=== PATIENT | female | born 1950 | race Caucasian/White ===

== ENCOUNTER 2020-05-14 15:35 | Outpatient (REF) | payer MEDICARE, SELFPAY ==
--- NOTE | 2020-05-14 15:45 | XR_ITS ---
EXAMINATION: XR LUMBOSACRAL SPINE CLINICAL INFORMATION: Radiculopathy. COMPARISON: None TECHNIQUE: Three views of the lumbosacral spine. FINDINGS: There is normal lumbar lordosis. The vertebral heights are normal. There is grade 1 anterolisthesis L4-L5. There is loss of L4-L5 and L-the disc heights with ventral spondylosis at T12-L1 and L1-L2 disc levels. No visible acute fracture, dislocation or lytic process seen. The paravertebral soft tissues are normal. The SI joints are symmetrical and normal. XR/XR lumbar spine 2-3V IMPRESSION: There is grade 1 anterolisthesis L4 over L5. There is degenerative disc changes L4-L5, L1-L2 and T12-L1 disc levels with mild ventral spondylosis. No visible acute fracture or dislocation seen.
== END 2020-05-14 15:36 | disposition home or self-care (01) ==
LOC: HO.HMGCX 15:35
PROVIDERS: PCP Internal Medicine; Visit Provider Nurse Practitioner Family
DX: M54.16 Radiculopathy, lumbar region (principal)
CPT/HCPCS: 72100

== ENCOUNTER 2020-08-21 09:04 | Outpatient (REF) | payer MEDICARE, SELFPAY ==
[2020-08-21 12:27] LABS: Alanine Aminotransferase 18 U/L (0-31); Anion Gap 13 (12-20); Aspartate Amino Transferase 17 U/L (5-31); Blood Urea Nitrogen 15 mg/dL (9-16); Calcium 9.3 mg/dL (8.4-10.2); Carbon Dioxide 29 mmol/L (22-29); Chloride 105 mmol/L (96-108); Cholesterol 144 mg/dL; Estimated Glomerular Filt Rate > 60; Glucose Fasting 102 mg/dL (60-99); HDL Cholesterol 54 mg/dL; LDL Cholesterol Calculated 67 mg/dl; Potassium 4.6 mmol/L (3.3-5.1); Sodium 142 mmol/L (135-145); Triglycerides 115 mg/dL
[2020-08-21 12:30] LABS: Vitamin D 25-OH Total 74.4 ng/mL (>30)
== END 2020-08-21 09:05 | disposition home or self-care (01) ==
LOC: HO.HMGCLDS 09:04
PROVIDERS: PCP Internal Medicine; Visit Provider Internal Medicine
DX: E78.5 Hyperlipidemia, unspecified (principal); M85.852 Other specified disorders of bone density and structure, left thigh; I10 Essential (primary) hypertension; Z78.0 Asymptomatic menopausal state
CPT/HCPCS: 36415; 80048; 80061; 82306; 84450; 84460

== ENCOUNTER 2020-12-15 13:12 | Outpatient (REF) | payer MEDICARE, SELFPAY | END 2020-12-15 13:13 | disposition home or self-care (01) | LOC: HO.LAB 13:12 | PROVIDERS: Visit Provider Nurse Practitioner Family | DX: Z20.822 Contact with and (suspected) exposure to COVID-19 (principal); J32.9 Chronic sinusitis, unspecified | CPT/HCPCS: U0003; U0005 ==

== ENCOUNTER 2021-05-27 08:14 | Outpatient (REF) | payer MEDICARE, SELFPAY ==
[2021-05-27 12:04] LABS: Alanine Aminotransferase 16 U/L (0-31); Anion Gap 10 (12-20); Aspartate Amino Transferase 17 U/L (5-31); Blood Urea Nitrogen 22 mg/dL (9-16); Calcium 9.2 mg/dL (8.4-10.2); Carbon Dioxide 26 mmol/L (22-29); Chloride 109 mmol/L (96-108); Cholesterol 186 mg/dL; Estimated Glomerular Filt Rate > 60; Glucose Fasting 86 mg/dL (60-99); HDL Cholesterol 53 mg/dL; LDL Cholesterol Calculated 91 mg/dl; Potassium 4.1 mmol/L (3.3-5.1); Sodium 141 mmol/L (135-145); Triglycerides 210 mg/dL
[2021-05-27 12:19] LABS: Vitamin D 25-OH Total 37.3 ng/mL (>30)
== END 2021-05-27 08:15 | disposition home or self-care (01) ==
LOC: HO.HMGCLDS 08:14
PROVIDERS: PCP Internal Medicine; Visit Provider Internal Medicine
DX: M85.852 Other specified disorders of bone density and structure, left thigh (principal); E78.5 Hyperlipidemia, unspecified; I10 Essential (primary) hypertension
CPT/HCPCS: 36415; 80048; 80061; 82306; 84450; 84460

== ENCOUNTER 2021-10-28 11:08 | Outpatient (REF) | payer MEDICARE, SELFPAY ==
--- NOTE | ~2021-10-28 | XR_ITS ---
EXAMINATION: XR HIP, LEFT CLINICAL INFORMATION: Left hip pain. COMPARISON: 06/18/2018 and 12/22/2011 hip radiographs. TECHNIQUE: Two views of the left hip. FINDINGS: Bones and soft tissues are normal. No fracture. Alignment is anatomic. Hip joint space is maintained. XR/XR hip LT min 2V IMPRESSION: Unremarkable left hip.
== END 2021-10-28 11:09 | disposition home or self-care (01) ==
LOC: HO.HMGCX 11:08
PROVIDERS: PCP Internal Medicine; Visit Provider Internal Medicine
DX: M25.552 Pain in left hip (principal)
CPT/HCPCS: 73502

== ENCOUNTER 2021-11-04 08:36 | Outpatient (REF) | payer MEDICARE, SELFPAY ==
[2021-11-04 11:04] LABS: MANUAL DIFF FLAG NO
[2021-11-04 11:17] LABS: Basophils Percent Auto 0.5 % (0-2); Eosinophils Absolute Auto 0.2 X10*3/uL (0.0-0.4); Eosinophils Percent Auto 3.8 % (0-4); Hematocrit 39.9 % (37.0-47.0); Hemoglobin 12.8 g/dl (12.0-16.0); Imm Gran Abs Auto 0.02 X10*3/uL (0.00-0.03); Imm Gran Pct Auto 0.4 % (0.0-0.4); Lymphocytes Absolute Auto 1.6 X10*3/uL (1.2-4.9); Lymphocytes Percent Auto 29.8 % (20-40); Mean Corpuscular HGB Conc 32.1 g/dl (31.0-35.0); Mean Corpuscular Hemoglobin 27.5 pg (27.0-33.0); Mean Corpuscular Volume 85.8 fL (80.0-98.0); Mean Platelet Volume 9.9 fL (9.4-12.3); Monocytes Absolute Auto 0.5 X10*3/uL (0.1-1.2); Monocytes Percent Auto 9.6 % (2-11); Neutrophils Absolute Auto 3.1 x10*3/uL (2.0-8.3); Neutrophils Percent Auto 55.9 % (45-73); Platelet Count 237 X10*3/uL (160-400); Red Blood Count 4.65 X10*6/uL (4.20-5.50); Red Cell Distribution Width 13.6 % (11.0-16.0); White Blood Count 5.5 X10*3/uL (4.8-10.8)
[2021-11-04 11:30] LABS: Alanine Aminotransferase 31 U/L (0-31); Anion Gap 12 (12-20); Aspartate Amino Transferase 28 U/L (5-31); Blood Urea Nitrogen 19 mg/dL (9-16); Calcium 8.8 mg/dL (8.4-10.2); Carbon Dioxide 26 mmol/L (22-29); Chloride 106 mmol/L (96-108); Cholesterol 165 mg/dL; Estimated Glomerular Filt Rate > 60; Glucose Fasting 93 mg/dL (60-99); HDL Cholesterol 44 mg/dL; LDL Cholesterol Calculated 88 mg/dl; Potassium 4.5 mmol/L (3.3-5.1); Sodium 139 mmol/L (135-145); Triglycerides 166 mg/dL
[2021-11-04 11:52] LABS: TSH reflex Free T4 2.25 uIU/mL (0.32-4.0); Vitamin D 25-OH Total 33.6 ng/mL (>30)
[2021-11-04 12:02] LABS: Folate > 20.0 ng/mL (> or = 4.0); Vitamin B12 398 pg/mL (200-900)
== END 2021-11-04 08:37 | disposition home or self-care (01) ==
LOC: HO.HMGCLDS 08:36
PROVIDERS: PCP Internal Medicine; Visit Provider Internal Medicine
DX: D12.6 Benign neoplasm of colon, unspecified (principal); E78.5 Hyperlipidemia, unspecified; I10 Essential (primary) hypertension; K22.70 Barrett's esophagus without dysplasia; L40.9 Psoriasis, unspecified; M85.852 Other specified disorders of bone density and structure, left thigh
CPT/HCPCS: 36415; 80048; 80061; 82306; 82607; 82746; 84443; 84450; 84460; 85025

== ENCOUNTER 2022-01-04 11:47 | Outpatient (REF) | payer MEDICARE, SELFPAY ==
[2022-01-04 12:43] LABS: Influenza A PCR NEGATIVE (Negative); Influenza B PCR NEGATIVE (Negative); Resp Syncy Virus RNA Qual PCR NEGATIVE (Negative); SARS COV2 PCR INHOUSE NEGATIVE (Negative)
== END 2022-01-04 11:48 | disposition home or self-care (01) ==
LOC: HO.LNP 11:47
PROVIDERS: Visit Provider Internal Medicine
DX: Z20.822 Contact with and (suspected) exposure to COVID-19 (principal); R43.9 Unspecified disturbances of smell and taste
CPT/HCPCS: 0241U

== ENCOUNTER 2022-04-22 07:27 | Outpatient (REF) | payer MEDICARE, SELFPAY ==
[2022-04-22 11:29] LABS: MANUAL DIFF FLAG NO
[2022-04-22 11:46] LABS: Basophils Absolute Auto 0.1 X10*3/uL (0.0-0.2); Basophils Percent Auto 0.9 % (0-2); Eosinophils Absolute Auto 0.2 X10*3/uL (0.0-0.4); Eosinophils Percent Auto 3.3 % (0-4); Hematocrit 40.7 % (37.0-47.0); Hemoglobin 12.5 g/dl (12.0-16.0); Imm Gran Abs Auto 0.03 X10*3/uL (0.00-0.03); Imm Gran Pct Auto 0.5 % (0.0-0.4); Lymphocytes Absolute Auto 1.8 X10*3/uL (1.2-4.9); Lymphocytes Percent Auto 30.1 % (20-40); Mean Corpuscular HGB Conc 30.7 g/dl (31.0-35.0); Mean Corpuscular Hemoglobin 27.1 pg (27.0-33.0); Mean Corpuscular Volume 88.1 fL (80.0-98.0); Mean Platelet Volume 9.6 fL (9.4-12.3); Monocytes Absolute Auto 0.6 X10*3/uL (0.1-1.2); Monocytes Percent Auto 9.6 % (2-11); Neutrophils Absolute Auto 3.2 x10*3/uL (2.0-8.3); Neutrophils Percent Auto 55.6 % (45-73); Platelet Count 288 X10*3/uL (160-400); Red Blood Count 4.62 X10*6/uL (4.20-5.50); White Blood Count 5.8 X10*3/uL (4.8-10.8)
[2022-04-22 13:30] LABS: Alanine Aminotransferase 16 U/L (0-31); Anion Gap 10 (12-20); Aspartate Amino Transferase 16 U/L (5-31); Blood Urea Nitrogen 17 mg/dL (9-16); Calcium 8.9 mg/dL (8.4-10.2); Carbon Dioxide 28 mmol/L (22-29); Chloride 110 mmol/L (96-108); Cholesterol 178 mg/dL; Estimated Glomerular Filt Rate > 60; Glucose Fasting 91 mg/dL (60-99); HDL Cholesterol 47 mg/dL; LDL Cholesterol Calculated 97 mg/dl; Potassium 4.2 mmol/L (3.3-5.1); Sodium 144 mmol/L (135-145); Triglycerides 173 mg/dL; Vitamin D 25-OH Total 33.4 ng/mL (>30)
== END 2022-04-22 07:28 | disposition home or self-care (01) ==
LOC: HO.HMGCLDS 07:27
PROVIDERS: PCP Internal Medicine; Visit Provider Internal Medicine
DX: D12.6 Benign neoplasm of colon, unspecified (principal); E78.5 Hyperlipidemia, unspecified; F32.4 Major depressive disorder, single episode, in partial remission; I10 Essential (primary) hypertension; K22.70 Barrett's esophagus without dysplasia; K29.50 Unspecified chronic gastritis without bleeding; L40.9 Psoriasis, unspecified; M85.852 Other specified disorders of bone density and structure, left thigh; N95.9 Unspecified menopausal and perimenopausal disorder; Z85.3 Personal history of malignant neoplasm of breast
CPT/HCPCS: 36415; 80048; 80061; 82306; 84450; 84460; 85025

== ENCOUNTER 2022-11-08 11:52 | Outpatient (REF) | payer MEDICARE, SELFPAY ==
[2022-11-08 14:26] LABS: Appearance Urine Turbid; Color Urine Yellow; Glucose Urine UA Negative (Negative); Leukocyte Esterase Urine Moderate (2+) (Negative); Nitrite Urine Negative (Negative); PH 5.5 (5.0-9.0); Specific Gravity - Urine 1.025 (1.005-1.025); UMIC TRIGGER UACC YES; Urine Blood Trace (Negative); Urine Ketones Negative (Negative); Urine Protein Negative (Neg-Trace)
[2022-11-08 14:32] LABS: Bacteria Urine 3+ (None Seen); Hyaline Casts Urine 0-2 /LPF (0-2); RBC Urine 0-2 /HPF (0-2); UACC Culture Trigger YES; WBC Urine >50 /HPF (0-5)
== END 2022-11-08 11:53 | disposition home or self-care (01) ==
LOC: HO.HMGCLDS 11:52
PROVIDERS: PCP Internal Medicine; Visit Provider Internal Medicine
DX: R35.0 Frequency of micturition (principal)
CPT/HCPCS: 81001; 87086

== ENCOUNTER 2022-11-29 21:44 | Emergency (ER) | payer MEDICARE, SELFPAY ==
--- NOTE | 2022-11-29 | ECG_ITS ---
Test Reason : FALL Blood Pressure : / mmHG Vent. Rate : 085 BPM Atrial Rate : 085 BPM P-R Int : 164 ms QRS Dur : 078 ms QT Int : 370 ms P-R-T Axes : 044 -03 030 degrees QTc Int : 440 ms Normal sinus rhythm Normal ECG No previous ECGs available Referred By: Generic ED Physician Electronically Signed By:Mike Gilbert
--- NOTE | ~2022-11-29 | XR_ITS ---
EXAMINATION: XR LUMBAR SPINE XR SACRUM/COCCYX CLINICAL INDICATION: Fall and pain COMPARISON: 05/14/2020 TECHNIQUE: 3 views of the lumbar spine. 3 views of the sacrum/coccyx. FINDINGS: Lumbar spine: There is anatomic alignment of the lumbar vertebral bodies and posterior elements. Vertebral body heights are maintained. Endplate osteophytes are noted in the upper lumbar spine. No acute fracture is seen. There is diffuse mild to moderate disc space narrowing and lower lumbar facet arthropathy. Sacrum/coccyx: No acute fracture is seen. Sacroiliac joints appear intact. XR/XR lumbar spine 2-3V IMPRESSION: No acute findings identified in the lumbar spine or sacrum/coccyx. Degenerative changes as noted above.
--- NOTE | ~2022-11-29 | XR_ITS ---
EXAMINATION: XR LUMBAR SPINE XR SACRUM/COCCYX CLINICAL INDICATION: Fall and pain COMPARISON: 05/14/2020 TECHNIQUE: 3 views of the lumbar spine. 3 views of the sacrum/coccyx. FINDINGS: Lumbar spine: There is anatomic alignment of the lumbar vertebral bodies and posterior elements. Vertebral body heights are maintained. Endplate osteophytes are noted in the upper lumbar spine. No acute fracture is seen. There is diffuse mild to moderate disc space narrowing and lower lumbar facet arthropathy. Sacrum/coccyx: No acute fracture is seen. Sacroiliac joints appear intact. XR/XR sacrum coccyx min 2V IMPRESSION: No acute findings identified in the lumbar spine or sacrum/coccyx. Degenerative changes as noted above.
--- NOTE | ~2022-11-29 | CT_ITS ---
EXAMINATION: CT HEAD WITHOUT CONTRAST CT CERVICAL SPINE WITHOUT CONTRAST CLINICAL INFORMATION: Fall. Trauma. COMPARISON: None. TECHNIQUE: Imaging was performed from the skull base to vertex without intravenous administration of contrast. In addition, helical noncontrast CT imaging was acquired through the cervical spine and source images were reviewed along with axial reconstructions and sagittal and coronal MPRs. [This CT examination was performed using dose optimization techniques as appropriate, variously including the following: *Automated exposure control *Adjustment of mA and/or kV according to patient size (this includes techniques or standardized protocols for targeted exams where dose is matched to indication/reason for exam; i.e. extremities or head) *Use of iterative reconstruction technique] DLP: 1039 mGy-cm FINDINGS: HEAD: Scalp hematoma left frontal region. No skull fracture. No intracranial mass, hemorrhage, or midline shift is visualized. The ventricles and sulci are proportional. No extra-axial collections are identified. Lobular mucosal thickening in the inferior maxillary sinuses bilateral. Mastoid air cells and middle ear cavities are normally aerated. CERVICAL SPINE: There is no evidence of acute cervical spine fracture. Vertebral bodies remain normal in height. Cervical vertebrae have normal alignment. There is multilevel degenerative spondylosis of the cervical spine with disc height narrowing and endplate spurs and facet joint arthrosis No pre- or paravertebral soft tissue abnormality is identified. Limited assessment of the lung apices is unremarkable. CT/CT head/brain wo IV con IMPRESSION: 1. No acute intracranial pathology. 2. No CT evidence of acute cervical spine fracture or traumatic subluxation
--- NOTE | ~2022-11-29 | CT_ITS ---
EXAMINATION: CT HEAD WITHOUT CONTRAST CT CERVICAL SPINE WITHOUT CONTRAST CLINICAL INFORMATION: Fall. Trauma. COMPARISON: None. TECHNIQUE: Imaging was performed from the skull base to vertex without intravenous administration of contrast. In addition, helical noncontrast CT imaging was acquired through the cervical spine and source images were reviewed along with axial reconstructions and sagittal and coronal MPRs. [This CT examination was performed using dose optimization techniques as appropriate, variously including the following: *Automated exposure control *Adjustment of mA and/or kV according to patient size (this includes techniques or standardized protocols for targeted exams where dose is matched to indication/reason for exam; i.e. extremities or head) *Use of iterative reconstruction technique] DLP: 1039 mGy-cm FINDINGS: HEAD: Scalp hematoma left frontal region. No skull fracture. No intracranial mass, hemorrhage, or midline shift is visualized. The ventricles and sulci are proportional. No extra-axial collections are identified. Lobular mucosal thickening in the inferior maxillary sinuses bilateral. Mastoid air cells and middle ear cavities are normally aerated. CERVICAL SPINE: There is no evidence of acute cervical spine fracture. Vertebral bodies remain normal in height. Cervical vertebrae have normal alignment. There is multilevel degenerative spondylosis of the cervical spine with disc height narrowing and endplate spurs and facet joint arthrosis No pre- or paravertebral soft tissue abnormality is identified. Limited assessment of the lung apices is unremarkable. CT/CT cervical spine wo IV con IMPRESSION: 1. No acute intracranial pathology. 2. No CT evidence of acute cervical spine fracture or traumatic subluxation
[2022-11-29 22:02] VITALS: BP 112/61; PULSE 90; RESP 20; TEMP 36.8; O2SAT 95; BMI 31.8
[2022-11-29 22:51] LABS: Basophils Absolute Auto 0.1 X10*3/uL (0.0-0.2); Basophils Percent Auto 0.3 % (0-2); Eosinophils Absolute Auto 0.2 X10*3/uL (0.0-0.4); Eosinophils Percent Auto 1.3 % (0-4); Hematocrit 40.7 % (37.0-47.0); Hemoglobin 12.8 g/dl (12.0-16.0); Imm Gran Abs Auto 0.06 X10*3/uL (0.00-0.03); Imm Gran Pct Auto 0.4 % (0.0-0.4); Lymphocytes Absolute Auto 1.9 X10*3/uL (1.2-4.9); Lymphocytes Percent Auto 12.4 % (20-40); MANUAL DIFF FLAG NO; Mean Corpuscular HGB Conc 31.4 g/dl (31.0-35.0); Mean Corpuscular Hemoglobin 27.5 pg (27.0-33.0); Mean Corpuscular Volume 87.3 fL (80.0-98.0); Mean Platelet Volume 8.9 fL (9.4-12.3); Monocytes Absolute Auto 1.2 X10*3/uL (0.1-1.2); Monocytes Percent Auto 7.8 % (2-11); Neutrophils Absolute Auto 11.9 x10*3/uL (2.0-8.3); Neutrophils Percent Auto 77.8 % (45-73); Platelet Count 273 X10*3/uL (160-400); Red Blood Count 4.66 X10*6/uL (4.20-5.50); Red Cell Distribution Width 13.8 % (11.0-16.0); White Blood Count 15.3 X10*3/uL (4.8-10.8)
--- NOTE | 2022-11-29 22:52 | ED.GENADULT ---
HPI - General Adult General Chief complaint: Fall Stated complaint: vertigo, fell down 10 stairs, per ems Time Seen by Provider: 11/29/22 22:16 Source: patient and EMS Mode of arrival: EMS Limitations: no limitations History of Present Illness HPI narrative: 72-year-old female with known chronic vertigo disorder with going upstairs patient felt dizzy and spinning of the room around her could not hold the door knob lost her balance and fell backward landing on her back hitting her head, patient decline headache, no weakness, no numbness, patient is only complaining of low back pain, Patient declined any CP, SOB, loss of consciousness, abdominal pain. Related Data Home Medications Medication Instructions Recorded Confirmed Lactobacillus rhamnosus GG 10 1 cap PO DAILY 05/26/20 11/12/22 billion cell capsule (Culturelle) mometasone 0.1 % topical cream appl topical BID PRN 05/26/20 11/12/22 multivit with 1 tab PO DAILY 05/26/20 11/12/22 frchfvim-xabr-LI-lutein 8 mg iron-400 mcg-300 mcg tablet (Centrum Silver Women) omega-3 fatty acids-fish oil 360 1 cap PO DAILY 05/26/20 11/12/22 mg-1,200 mg capsule (Fish Oil) tamoxifen 20 mg tablet 20 mg PO DAILY 05/26/20 11/12/22 trazodone 50 mg tablet 50 - 100 mg PO BEDTIME 05/26/20 11/12/22 biotin 10,000 mcg capsule mcg PO 05/31/21 11/12/22 cetirizine 10 mg tablet (Zyrtec) 10 mg PO DAILY PRN 05/31/21 11/12/22 citalopram 20 mg tablet 20 mg PO QAM 05/31/21 11/12/22 apremilast 30 mg tablet (Otezla) 30 mg PO BID 01/04/22 11/12/22 Previous Rx's Medication Instructions Recorded losartan 50 mg tablet 50 mg PO DAILY #90 tabs 01/26/22 tramadol 50 mg tablet 50 mg PO DAILY PRN pain #10 tabs 04/14/22 rosuvastatin 10 mg tablet (Crestor) 10 mg PO .every other day 90 days 09/01/22 #45 tabs nitrofurantoin 100 mg PO Q12H 10 days #20 caps 11/08/22 monohydrate/macrocrystals 100 mg capsule meclizine 25 mg tablet 25 mg PO DAILY PRN motion sickness 11/12/22 #14 tabs cefuroxime axetil 500 mg tablet 500 mg PO BID #14 tabs 11/29/22 Allergies Allergy/AdvReac Type Severity Reaction Status Date / Time levofloxacin [Levaquin] AdvReac Unknown GI upset Verified 11/29/22 22:02 Review of Systems Review of Systems: All other systems are reviewed and are negative Constitutional: Reports as per HPI and Reports no additional constitutional complaints Eyes: Reports as per HPI and Reports no additional eye complaints Reports system reviewed and no additional complaints, except as documented Cardiovascular: Reports as per HPI and Reports no additional cardiovascular complaints Respiratory: Reports as per HPI and Reports no additional respiratory complaints Gastrointestinal: Reports as per HPI and Reports no additional gastrointestinal complaints Genitourinary: Reports no additional female genitourinary complaints Musculoskeletal: Reports no additional musculoskeletal complaints Skin/Breast: Reports system reviewed and no additional complaints, except as docu Psychiatric: Reports no additional psychiatric complaints Endocrine: Reports no additional endocrine complaints Hematologic/Lymphatic: Reports no additional hematologic/lymphatic complaints Allergic/Immunologic: Reports no additional allergic/immunologic complaints Reports system reviewed and no additional complaints, except as documented and Reports Abnormal speech present [facility] Past Medical History Medical History Anxiety and depression 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 Chronic gastritis Chronic interstitial cystitis Chronic left hip pain Depression, major, in partial remission Dyslipidemia Environmental and seasonal allergies Essential hypertension Essential hypertension Hip bursitis, left Hx of breast cancer Osteopenia of left femoral neck Positional lightheadedness Preoperative examination Psoriasis Right lumbar radiculitis Tubular adenoma of colon Varicose veins of legs Surgical History Hx of colonoscopy S/P debridement Family History Family History Father Stroke Substance use disorder Mother HTN (hypertension) Asthma Breast cancer Brother Substance use disorder Social History Social History Housing: House Alcohol intake: never Patient Tobacco Use Status: Never used Tobacco e-Cigarette/Vaping Use: Never Used Second Hand Smoke Exposure: No Advance Directives: No Advance Directives Information Provided: Yes service: No Current occupational status: employed Cognitive needs: No Hearing needs: No Vision needs: No Physical Exam ED Vital Signs: Vital Signs - 24 hr 11/29/22 22:02 Temperature 98.2 F Pulse Rate 90 Respiratory Rate 20 Blood Pressure 112/61 Pulse Oximetry 95 Oxygen Delivery Method Room Air BMI result Body Mass Index 31.8 Vital signs have been reviewed as appeared to be correct. Blood pressure normal. Heart rate normal. Respiration rate normal. Temperature normal. Oxygen saturation normal. Appearance: Alert. Oriented X3. No acute distress. Head: Normal external exam. Normocephalic. Atraumatic. No Jarquin signs noted. No raccoon eyes noted, small hematoma to left forehead area. Eyes: PERRLA. EOMI. Conjunctiva and sclera normal. Eyelids normal. ENT: TM's Normal. Pharynx normal. Uvula midline. Moist mucous membranes. No trismus noted. No drooling noted. No muffled voice noted. Neck: Normal inspection. Neck supple. FROM. No adenopathy. Thyroid Normal. No meningeal signs. No neck mass noted. CVS: Normal heart rate and rhythm. Heart sound normal. No murmurs noted. Pulses normal throughout. Respiratory: No respiratory distress. Painless inspiration. Breath sounds normal. No wheezes/rales/rhonchi noted. Chest nontender. No accessory muscle usage noted or decreased air movement noted. Abdomen: Soft and nontender. Bowel sounds normal in all 4 quadrants. No distention noted. No organomegaly noted. No visible injury noted. Back: No CVA tenderness. Hematoma and tenderness to the lower lumbar/upper sacral area no step-off, no deformity. Skin: Skin warm and dry. Normal skin color. Normal skin turgor. No rashes/lesions/lacerations noted. Extremities: No lower extremity edema. Extremities exhibit normal range of motion. Extremities nontender. Neuro: Oriented X 3. Cranial nerve exam: II-XII are grossly intact No motor deficit. No sensory deficit. Reflexes normal. Course Course Course Narrative: 72-year-old female came in by ambulance after sustaining a mechanical fall patient has a chronic vertigo that triggered the patient's fall, patient is awake, alert, oriented x3, complaining of no chest pain, no LOC, no AC. Normal Neuro exam unremarkable head CT, EKG is unremarkable, troponin is negative 6 hours after the event, no SOB, leukocytosis likely reactionary Medical Decision Making Differential Diagnosis Differential Diagnoses: The differential diagnosis associated with the presentation includes (ACS, syncope, vertigo, mechanical fall, intracranial bleed, cervical spine injury, lumbar spine injury, UTI, electrolyte abnormality, severe anemia.) Admission/Observation Consideration of admission/observation: Escalation of care including admission/observation considered Lab Data MDM Lab Attestation statement: I reviewed the patient's lab results. 11/29/22 22:46 11/29/22 22:46 Labs: Lab Results 11/29/22 11/29/22 11/29/22 Range/Units 22:46 22:46 22:50 WBC 15.3 H (4.8-10.8) X10*3/uL RBC 4.66 (4.20-5.50) X10*6/uL Hgb 12.8 (12.0-16.0) g/dl Hct 40.7 (37.0-47.0) % MCV 87.3 (80.0-98.0) fL MCH 27.5 (27.0-33.0) pg MCHC 31.4 (31.0-35.0) g/dl RDW 13.8 (11.0-16.0) % Plt Count 273 (160-400) X10*3/uL MPV 8.9 L (9.4-12.3) fL Immature Gran % (Auto) 0.4 (0.0-0.4) % Neut % (Auto) 77.8 H (45-73) % Lymph % (Auto) 12.4 L (20-40) % [place] % (Auto) 7.8 (2-11) % Eos % (Auto) 1.3 (0-4) % Baso % (Auto) 0.3 (0-2) % Lymph # (Auto) 1.9 (1.2-4.9) X10*3/uL [place] # (Auto) 1.2 (0.1-1.2) X10*3/uL Eos # (Auto) 0.2 (0.0-0.4) X10*3/uL Baso # (Auto) 0.1 (0.0-0.2) X10*3/uL Abs Immat Gran (auto) 0.06 H (0.00-0.03) X10*3/uL Absolute Neuts (auto) 11.9 H (2.0-8.3) x10*3/uL Absolute Nucleated RBC 0.000 (0.0-0.012) X10*3/uL Nucleated RBC % (auto) 0.0 (0.0-0.2) /100WBC Sodium 141 (135-145) mmol/L Potassium 4.1 (3.3-5.1) mmol/L Chloride 106 (96-108) mmol/L Carbon Dioxide 24 (22-29) mmol/L Anion Gap 15 (12-20) BUN 26 H (9-16) mg/dL Creatinine 0.85 (0.5-1.4) mg/dL Estim Creat Clear Calc 60.9 Estimated GFR > 60 Random Glucose 146 H (60-115) mg/dL Calcium 9.6 D (8.4-10.2) mg/dL Urine Color Yellow Urine Appearance Turbid Urine pH 5.0 (5.0-9.0) Ur Specific Dexter >= 1.030 H (1.005-1.025) Urine Protein 30 (1+) H (Neg-Trace) mg/dL Urine Glucose (UA) Negative (Negative) mg/dL Urine Ketones Trace (Negative) mg/dL Urine Blood Small (1+) H (Negative) Urine Nitrite Negative (Negative) Ur Leukocyte Esterase Moderate (2+) H (Negative) Urine RBC 6-10 H (0-2) /HPF Urine WBC >50 H (0-5) /HPF Ur Squamous Epith Cells 11-20 (0-2) /HPF Calcium Oxalate Crystal Present Urine Bacteria 4+ (None Seen) Hyaline Casts 6-10 (0-2) /LPF Independent Interpretation I performed an independent interpretation of an: EKG (Normal sinus rhythm at 85 beats per minute, left axis deviation, normal intervals, no ST-T changes.), Plain X-Ray (Lumbar spine/sacral x-ray: No acute fracture.) and CT Scan (Head/C-spine CT: No acute intracranial pathology, no C-spine fracture.) Radiology Impression Discussion of test interpretation with radiology: I have reviewed the radiologist's reading. Chronic Conditions Patient?s care impacted by: Other (Vertigo) Discharge Plan Discharge Clinical Impression: Acute UTI (urinary tract infection), Vertigo, Contusion of back, Fall (on) (from) other stairs and steps, initial encounter Patient Disposition: Home, Self-Care Instructions: Urinary Tract Infection in Women (ED) Prescriptions: New cefuroxime axetil 500 mg tablet 500 mg PO BID Qty: 14 0RF No Action tramadol 50 mg tablet 50 mg PO DAILY PRN (Reason: pain) Qty: 10 0RF rosuvastatin [Crestor] 10 mg tablet 10 mg PO .every other day 90 Days Qty: 45 4RF Rx Instructions: 1 tablet every other day nitrofurantoin monohyd/m-cryst 100 mg capsule 100 mg PO Q12H 10 Days Qty: 20 0RF Rx Instructions: must administer with a meal/food tamoxifen 20 mg tablet 20 mg PO DAILY trazodone 50 mg tablet 50 - 100 mg PO BEDTIME omega-3 fatty acids-fish oil [Fish Oil] 360-1,200 mg capsule 1 cap PO DAILY Centrum Silver Women 8 mg iron-400 mcg-300 mcg tablet 1 tab PO DAILY Culturelle 10 billion cell capsule 1 cap PO DAILY mometasone 0.1 % cream topical BID PRN citalopram 20 mg tablet 20 mg PO QAM Otezla 30 mg tablet 30 mg PO BID biotin 10,000 mcg capsule PO cetirizine [Zyrtec] 10 mg tablet 10 mg PO DAILY PRN losartan 50 mg tablet 50 mg PO DAILY Qty: 90 3RF meclizine 25 mg tablet 25 mg PO DAILY PRN (Reason: motion sickness) Qty: 14 0RF Referrals: Margaret Roa MD [Primary Care Provider] -
[2022-11-29 23:00] LABS: Appearance Urine Turbid; Color Urine Yellow; Glucose Urine UA Negative (Negative); Leukocyte Esterase Urine Moderate (2+) (Negative); Nitrite Urine Negative (Negative); Specific Gravity - Urine >= 1.030 (1.005-1.025); UMIC TRIGGER UACC YES; Urine Blood Small (1+) (Negative); Urine Ketones Trace mg/dL (Negative); Urine Protein 30 (1+) mg/dL (Neg-Trace)
[2022-11-29 23:07] LABS: Anion Gap 15 (12-20); Blood Urea Nitrogen 26 mg/dL (9-16); Calcium 9.6 mg/dL (8.4-10.2); Carbon Dioxide 24 mmol/L (22-29); Chloride 106 mmol/L (96-108); Creatinine Clr Calc Pharmacy 60.9; Estimated Glomerular Filt Rate > 60; Glucose Random 146 mg/dL (60-115); Potassium 4.1 mmol/L (3.3-5.1); Sodium 141 mmol/L (135-145)
[2022-11-29 23:12] LABS: Bacteria Urine 4+ (None Seen); Calcium Oxalate Crystals Urine Present; UACC Culture Trigger YES; WBC Urine >50 /HPF (0-5)
--- NOTE | 2022-11-29 23:39 | PC.NURSE ---
handoff report to EHSAN Payton
[2022-11-30 00:01] LABS: Troponin-I High Sensitivity < 2.7 ng/L (<3.5-17.0)
[2022-11-30 00:19] VITALS: BP 128/64; PULSE 96; RESP 16; TEMP 36.9; O2SAT 92
== END 2022-11-30 00:51 | disposition home or self-care (01) ==
PROVIDERS: Emergency Provider Emergency Medicine; PCP Internal Medicine
DX: S30.0XXA Contusion of lower back and pelvis, initial encounter (principal); M54.50 Low back pain, unspecified; N39.0 Urinary tract infection, site not specified; R51.9 Headache, unspecified; M54.2 Cervicalgia; R42 Dizziness and giddiness; R07.89 Other chest pain; M53.3 Sacrococcygeal disorders, not elsewhere classified; W10.9XXA Fall (on) (from) unspecified stairs and steps, initial encounter; Y93.9 Activity, unspecified; Y92.9 Unspecified place or not applicable; Y99.9 Unspecified external cause status; Z79.899 Other long term (current) drug therapy
CPT/HCPCS: 36415; 70450; 72100; 72125; 72220; 80048; 81001; 81003; 84484; 85025; 87086; 93005; 99284; 99285

== ENCOUNTER → 2022-11-29 22:08 | Outpatient (BNV) | payer MEDICARE, SELFPAY | PROVIDERS: Emergency Provider Emergency Medicine; PCP Internal Medicine; Visit Provider Internal Medicine Cardiovascular Disease | DX: R42 Dizziness and giddiness (principal) | CPT/HCPCS: 93010 ==

== ENCOUNTER 2022-12-06 08:13 | Outpatient (REF) | payer MEDICARE, SELFPAY ==
[2022-12-06 12:41] LABS: Alanine Aminotransferase 30 U/L (0-31); Anion Gap 8 (12-20); Aspartate Amino Transferase 27 U/L (5-31); Blood Urea Nitrogen 17 mg/dL (9-16); Calcium 8.7 mg/dL (8.4-10.2); Carbon Dioxide 28 mmol/L (22-29); Chloride 109 mmol/L (96-108); Cholesterol 144 mg/dL; Estimated Glomerular Filt Rate > 60; Glucose Fasting 90 mg/dL (60-99); HDL Cholesterol 45 mg/dL; LDL Cholesterol Calculated 71 mg/dl; Potassium 4.4 mmol/L (3.3-5.1); Sodium 141 mmol/L (135-145); Triglycerides 141 mg/dL
== END 2022-12-06 08:14 | disposition home or self-care (01) ==
LOC: HO.HMGCLDS 08:13
PROVIDERS: PCP Internal Medicine; Visit Provider Internal Medicine
DX: F32.A Depression, unspecified (principal); F41.9 Anxiety disorder, unspecified; I10 Essential (primary) hypertension; E78.5 Hyperlipidemia, unspecified
CPT/HCPCS: 36415; 80048; 80061; 84450; 84460; 86617; 86618

== ENCOUNTER 2022-12-07 08:11 | Outpatient (REF) | payer MEDICARE, SELFPAY ==
[2022-12-07 13:07] LABS: Appearance Urine Cloudy; Color Urine Yellow; Glucose Urine UA Negative (Negative); Leukocyte Esterase Urine Moderate (2+) (Negative); Nitrite Urine Negative (Negative); PH 5.5 (5.0-9.0); UMIC TRIGGER UACC YES; Urine Blood Trace (Negative); Urine Ketones Negative (Negative); Urine Protein Negative (Neg-Trace)
[2022-12-07 13:11] LABS: Bacteria Urine 1+ (None Seen); Hyaline Casts Urine 0-2 /LPF (0-2); RBC Urine 0-2 /HPF (0-2); UACC Culture Trigger YES; WBC Urine 21-50 /HPF (0-5)
[2022-12-09 10:03] LABS: Lyme Abs Screen <0.90 index
== END 2022-12-07 08:12 | disposition home or self-care (01) ==
LOC: HO.HMGCLDS 08:11
PROVIDERS: Internal Medicine; PCP Internal Medicine; Visit Provider Internal Medicine
DX: T14.8XXA Other injury of unspecified body region, initial encounter (principal); W57.XXXA Bitten or stung by nonvenomous insect and other nonvenomous arthropods, initial encounter; R35.0 Frequency of micturition
CPT/HCPCS: 36415; 81001; 81003; 86617; 86618; 87086

== ENCOUNTER 2022-12-07 11:47 | Outpatient (AMB) | payer MEDICARE, SELFPAY ==
--- NOTE | 2022-12-07 11:54 | MHC.PC.OV ---
Vital Signs 12/07/22 12:15 Height 5 ft 4 in Weight 186 lb 4 oz BMI 32.0 BP 128/84 Blood Pressure Location Rt brachial Position Sitting Pulse 78 Pulse Source Pulse Oximeter Pulse Oximetry (%) 98 Oxygen Delivery Method Room Air Intake Visit Reasons: 6m ffup lipids, htn Intake Note: pt is here to follow up on labs and HTN pt has seen at [facility] for a fall on 11/29/22 Allergies levofloxacin [Levaquin] Adverse Reaction (Unknown, Verified 12/07/22 12:28) GI upset Medication List - Last Reconciled 12/07/22 by Margaret Roa MD biotin mcg PO cetirizine (Zyrtec) 10 mg PO DAILY PRN cholecalciferol (vitamin D3) 50 mcg PO DAILY escitalopram oxalate 20 mg PO DAILY gabapentin 100 mg PO DAILY lamotrigine 100 mg PO DAILY lorazepam 0.5 mg PO DAILY PRN losartan 50 mg PO DAILY meclizine 25 mg PO BID PRN mometasone 0.1% appl topical BID PRN omega-3 fatty acids-fish oil 360-1,200 mg (Fish Oil) 1 cap PO DAILY rosuvastatin (Crestor) 10 mg PO .every other day 90 days trazodone 50 - 100 mg PO BEDTIME Tobacco use date assessed: 12/07/22 Fall risk assessment: 2 + Falls in past year Last assessed Fall Risk: 12/07/22 Dental Screening Dental Screen Date: 12/07/22 Did you have a dental visit in the last 12 months?: Yes Did you have a dental problem in the last 6 months where you did not have access to dental care?: No Was dental information given to patient?: Patient has dentist HPI 6m ffup lipids, htn HPI Details 72-year-old lady here today for follow-up after recent ER visit. Was seen November 29 after a fall down 10 steps at home. Patient states that she was caring her grows really up to her house when she tilted her head backwards felt dizzy and fell backwards down the steps, she was able to get up and call for 911, no loss of consciousness. At the ER she had a CT of the head, C-spine, lumbar spine, sacrum and coccyx, which did not show any bleed, no mass, no midline shift, no fractures, and only showed presence of degenerative disc disease in her spine. Patient was evaluated at [facility] for possible benign positional vertigo on the same day, but results came back negative. She still experiences lightheadedness when she tilts her head back or when she attended side to side. Does have an appointment with vestibular rehab in [place] evaluate again for vertigo. Has been having frequent falls due to positional lightheadedness, has had4 episode already. Has tried taking meclizine, which she states has not been helping She is also here for follow-up on her dyslipidemia and hypertension. Recent fasting labs showed normal fasting lipid and fasting glucose as well as electrolytes and renal function. She had a a urinalysis done today, with results still pending, was diagnosed to have a UTI during her ER visit and was placed on antibiotic. Patient states that she still experiences urinary frequency, but no dysuria no back abdominal pain. She states that she has seen several urologists in the past and has been diagnosed to have interstitial cystitis. Has been placed on Detrol and Myrbetriq, which has not afforded any improvement, and cost difficulty with urination. 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 Chronic gastritis Chronic interstitial cystitis Chronic left hip pain Depression, major, in partial remission Dizziness after extension of neck Dyslipidemia Environmental and seasonal allergies Essential hypertension Essential hypertension Hip bursitis, left Hx of breast cancer Interstitial cystitis (chronic) with hematuria Osteopenia of left femoral neck Positional lightheadedness Preoperative examination Psoriasis Right lumbar radiculitis Tubular adenoma of colon Varicose veins of legs Surgical History Hx of colonoscopy S/P debridement Family History Father Stroke Substance use disorder Mother HTN (hypertension) Asthma Breast cancer Brother Substance use disorder Social History Housing: House Alcohol intake: never Patient Tobacco Use Status: Never used Tobacco e-Cigarette/Vaping Use: Never Used Second Hand Smoke Exposure: No service: No Current occupational status: employed Cognitive needs: No Hearing needs: No Vision needs: No Questionnaire Thrive Questionnaire Date Thrive assessed: 11/08/21 SCOTT-7 AMB Questionnaire SCOTT-7 Date SCOTT - 7 assessed: 11/08/21 Source: Developed by Drs. Keith Peralta, Ca Blandon, Marvin Byrnes and colleagues, with an educational yecenia from [employer]. Review of Systems Const Denies fever(s), Denies headache(s), Denies lethargy and Denies weakness Eyes Denies change in vision ENT Denies headache(s), Denies nasal congestion, Denies nasal discharge and Denies sore throat Card Denies chest pain, Denies lightheadedness and Denies dyspnea Resp Denies cough and Denies dyspnea GI Denies abdominal pain, Denies change in bowel habits and Denies heartburn Musc Details: Complaining of aching and stiffness in her lower back and hip left more than right Reports as per HPI Skin/Breast Details: Sustained swelling and a hematoma around left eye and cheek as well as lower back and buttock after her fall Neuro Details: Patient complains of feeling foggy head Denies headache(s) and Denies weakness Abdoulaye/Lymph Reports as per HPI Physical exam (Primary Care) Vital Signs: Last Vital Signs Pulse 78 12/07/22 12:15 BP 128/84 12/07/22 12:15 Pulse Ox 98 12/07/22 12:15 Oxygen Delivery Method Room Air 12/07/22 12:15 BMI result Body Mass Index 32.0 Tobacco/Smoking Status: Tobacco use Status Tobacco use date assessed 12/07/22 12/07/22 12:25 Patient Tobacco Use Status Never used Tobacco 12/07/22 11:55 e-Cigarette/Vaping Use Never Used 12/07/22 11:55 Thrive Assessment: Date of Thrive Assessment Date Thrive assessed 11/08/21 12/07/22 11:55 Const Other: Alert oriented x3, no acute cardiorespiratory distress noted ambulatory with assistance of a cane, gets lightheaded when she tilts her head backwards Nutritional Appearance: obese Orientation/consciousness: patient oriented x3 HENMT Head: Yes No palpable skull fracture present, Yes normocephalic, Yes hematoma (Left cheek and congregation), No scalp lesion, No scalp tenderness and Yes periorbital ecchymosis (Left) Eyes Periorbital: periorbital findings abnormal (Left periorbital ecchymosis) Conjunctivae: conjunctivae normal Pupils: Equal, round and reactive pupils present EOM: EOMs intact bilaterally Neck Neck: Yes full ROM (Gets dizzy when she tilts her head backwards), Yes no lymphadenopathy and Yes supple Resp Auscultation: clear to auscultation bilaterally Cardio Other: S1-S2 present regular rate and rhythm GI Palpation (GI): Soft to palpation, nontender, no guarding and no masses General: Yes no CVA tenderness Back/Spine/Pelvis Back: no CVA tenderness Skin Other: Left periorbital ecchymosis and bruising along left congregation and left cheek, healing hematoma on lower back and bilateral buttocks, left more than the right Neuro Other: Ambulatory with assistance of a cane General: patient oriented x3, moves all extremities, Normal light touch and pain sensation, no focal motor deficits and CN's II-XI intact bilaterally Cranial nerves: Yes Equal, round and reactive pupils present Extrem General: Yes full ROM, Yes no joint enlargement and Yes no clubbing, cyanosis or edema Results Reviewed Results Reviewed: ENTERED: 12/06/[address] [facility] [address]: ORDERED: Met Prof Fast, AST, ALT, Lipid Panel Test Result Flag Reference Site Sodium 141 135-145 mmol/L Potassium 4.4 3.3-5.1 mmol/L CL 109 H 96-108 mmol/L CO2 28 22-29 mmol/L Gap 8 L 12-20 BUN 17 H 9-16 mg/dL Creat 0.75 0.5-1.4 mg/dL EGFR > 60 NOTE: For -[place] individuals, multiply the result by 1.210. Chronic Kidney Disease: Estimated GFR < 60 mL/min/1.73m2 Severe Kidney Disease: Estimated GFR < 15 mL/min/1.73m2 FBS 90 60-99 mg/dL CA 8.7 # 8.4-10.2 mg/dL AST (GOT) 27 5-31 U/L ALT (GPT) 30 0-31 U/L Triglyceride 141 mg/dL Desirable Triglyceride: less than 150 mg/dL Borderline High Triglyceride 150-199 mg/dL High Triglyceride: 200-499 mg/dL Very High Triglyceride: greater than or equal to 5OO mg/dL Chol 144 mg/dL Desirable Cholesterol: less than 200 mg/dL Borderline High Cholesterol: 200-239 mg/dL High Cholesterol: greater than 239 mg/dL LDL Calculated 71 mg/dl Desirable LDL: less than 100 mg/dL Near Optimal/Above Optimal LDL: 110-129 mg/dL Borderline High LDL: 130-159 mg/dL High LDL: 160-189 mg/dL Very High LDL: greater than or equal to 190 mg/dL HDL 45 mg/dL Desirable HDL: greater than 40 mg/dL Note: This HDL assay may give artificially low results in patients with liver disease. PEC : [id number] YUSEF: 11/29/22 STATUS: COMP REQ : [id number] RECD: 11/29/[address]: Omar Gill MD COMP: 11/29/22 ENTERED: 11/29/[address]: Generic ED Physician ORDERED: CBC Auto Diff Test Result Flag Reference Site WBC 15.3 H 4.8-10.8 X10*3/uL RBC 4.66 4.20-5.50 X10*6/uL HGB 12.8 12.0-16.0 g/dl HCT 40.7 37.0-47.0 % MCV 87.3 80.0-98.0 fL MCH 27.5 27.0-33.0 pg MCHC 31.4 31.0-35.0 g/dl RDW 13.8 11.0-16.0 % PLT 273 160-400 X10*3/uL Assessment and Plan Assessment & Plan (1) Dizziness after extension of neck: Code(s): R42 - Dizziness and giddiness Plan: Advised to keep appointment with [facility] vestibular rehab for evaluation regarding positional vertigo, neurology appointment also obtain (2) Interstitial cystitis (chronic) with hematuria: Code(s): N30.11 - Interstitial cystitis (chronic) with hematuria Plan: Urology referral ordered (3) Urinary frequency: Code(s): R35.0 - Frequency of micturition Plan: Likely due to your interstitial cystitis, referred to urology for further evaluation management (4) Frequent falls: Code(s): R29.6 - Repeated falls Plan: Advised to keep appointment with [facility] physical therapy department for evaluation for positional vertigo and neurology referral ordered (5) Dyslipidemia: Code(s): E78.5 - Hyperlipidemia, unspecified Plan: Reviewed recent fasting lipid profile with patient with levels within normal . Continue with rosuvastatin and may decreased dosing frequency to twice a week; and advised to hold off on her [place] 3 fatty acid supplements. continue adherence to low-cholesterol diet and regular exercise, at least 30 minutes 3 to 4 times a week. Advised patient to make healthy food choices, eat more fruits, vegetables, whole grains, wild caught fish and low-fat dairy. Limit amount of meat and fried or fatty food products, as well as processed foods and fast foods. Follow-up scheduled with repeat fasting lipid panel in 3 months. (6) Essential hypertension: Code(s): I10 - Essential (primary) hypertension Plan: Blood pressure at goal of less than 130/80. Continue with losartan 50 mg daily . Reinforced importance of following a low sodium diet, getting regular exercise, and lowering stress levels. Orders: Orders Alanine Aminotransferase 3 Months E78.5 - Hyperlipidemia, unspecified, I10 - Essential (primary) hypertension Aspartate Amino Transferase 3 Months E78.5 - Hyperlipidemia, unspecified, I10 - Essential (primary) hypertension Basic Metabolic Panel Fasting 3 Months E78.5 - Hyperlipidemia, unspecified, I10 - Essential (primary) hypertension Lipid Panel 3 Months E78.5 - Hyperlipidemia, unspecified, I10 - Essential (primary) hypertension Referrals Urology Referral N30.11 - Interstitial cystitis (chronic) with hematuria, R35.0 - Frequency of micturition Neurology Referral R29.6 - Repeated falls, R42 - Dizziness and giddiness Coding Level of Care Code Est Pt Level 4 (55016) Diagnoses Dizziness after extension of neck R42 Interstitial cystitis (chronic) with hematuria N30.11 Urinary frequency R35.0 Frequent falls R29.6 Dyslipidemia E78.5 Essential hypertension I10
[2022-12-07 12:15] VITALS: BP 128/84; PULSE 78; O2SAT 98; BMI 32.0
== END 2022-12-07 13:30 | disposition home or self-care (01) ==
PROVIDERS: PCP Internal Medicine; Visit Provider Internal Medicine
DX: R42 Dizziness and giddiness (principal); N30.11 Interstitial cystitis (chronic) with hematuria; I10 Essential (primary) hypertension; R35.0 Frequency of micturition; R29.6 Repeated falls; E78.5 Hyperlipidemia, unspecified
CPT/HCPCS: 99214

== ENCOUNTER 2023-02-04 09:26 | Outpatient (AMB) | payer MEDICARE, SELFPAY ==
[2023-02-04 10:45] VITALS: BP 140/82; PULSE 88; TEMP 36.6; O2SAT 98; BMI 31.9
--- NOTE | 2023-02-04 10:45 | MHC.OFFWIV ---
Intake Vital Signs 02/04/23 10:45 Height 5 ft 4 in Weight 186 lb BMI 31.9 BP 140/82 H Blood Pressure Location Lt brachial Position Sitting Pulse 88 Pulse Source Pulse Oximeter Temp 97.8 F Temp Source Temporal Artery Scan Pulse Oximetry (%) 98 Oxygen Delivery Method Room Air Intake Visit Reasons: EST/uti Intake Note: pt is herer for c/o possible uti Patient Tobacco Use Status: Never used Tobacco Allergies levofloxacin [Levaquin] Adverse Reaction (Unknown, Verified 02/04/23 10:46) GI upset Do you need a note to return to daycare/school/sports/work: Yes HPI EST/uti HPI Details Patient is a 72-year-old female comes to clinic complaining of increased urinary frequency for the past few days. She gives a history stool cystitis with similar symptoms in the past never had a bacteria grown on culture. States she was treated for possibly UTI recently when she had a mechanical fall and went to the emergency department. She states she did not have any urinary symptoms at the time, but had shown some leuks in the urine. She denies painful urination, urinary incontinence, bladder pressure, back or flank pain, fever chills, nausea vomiting or diarrhea, weakness or malaise or myalgias, headache or dizziness, anorexia, blood in the urine, or other significant associated symptoms. 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 Chronic gastritis Varicose veins of legs Psoriasis Environmental and seasonal allergies Dyslipidemia Chronic interstitial cystitis Right lumbar radiculitis Surgical History Hx of colonoscopy S/P debridement Family History Father Stroke Substance use disorder Mother HTN (hypertension) Asthma Breast cancer Brother Substance use disorder Social History Housing: House Alcohol intake: never Patient Tobacco Use Status: Never used Tobacco e-Cigarette/Vaping Use: Never Used Second Hand Smoke Exposure: No service: No Current occupational status: employed Cognitive needs: No Hearing needs: No Vision needs: No Review of Systems Const All systems reviewed & are unremarkable except as noted in HPI and below Physical Exam Vital Signs: Last Vital Signs Temp 97.8 F 02/04/23 10:45 Pulse 88 02/04/23 10:45 BP 140/82 H 02/04/23 10:45 Pulse Ox 98 02/04/23 10:45 Oxygen Delivery Method Room Air 02/04/23 10:45 BMI result Body Mass Index 31.9 Const General: cooperative, healthy appearing, comfortable, no acute distress, alert, awake, Physically active and well groomed; No anxious, diaphoretic, ill appearing, intoxicated appearing, poor hygiene or tired appearing Nutritional Appearance: average body habitus Limitations: no limitations GI Palpation (GI): Soft to palpation, not firm, nontender, no guarding, not rigid, No hepatosplenomegaly present, no hernias and no masses General: Yes no CVA tenderness Back/Spine/Pelvis Back: no CVA tenderness Skin Other: Good color, warm and dry Psych Appearance: grossly normal Mental Status: mental status grossly normal Speech and movement: Normal speech and movement present Affect: normal affect Attitude: cooperative Thought process: Normal thought process present Insight: Good insight present (Psych) Judgement: Good judgement present (Psych) Results AMB Urinalysis, Automated UA Leukoctes 125 Mikey/uL Last Edit by Marko Bundy CMA on 02/04/23 10:59 UA Nitrite Negative Last Edit by Marko Bundy CMA on 02/04/23 10:59 UA Urobilinogen 0.2 mg/dL Last Edit by Marko Bundy CMA on 02/04/23 10:59 UA Protein 0 mg/dL Last Edit by Marko Bundy CMA on 02/04/23 10:59 UA pH 6.0 Last Edit by Marko Bundy CMA on 02/04/23 10:59 UA Blood 10 Issac/uL Last Edit by Marko Bundy CMA on 02/04/23 10:59 UA Specific [place] 1.015 Last Edit by Marko Bundy CMA on 02/04/23 10:59 UA Ketone Negative Last Edit by Marko Bundy CMA on 02/04/23 10:59 UA Bilirubin 0 mg/dL Last Edit by Marko Bundy CMA on 02/04/23 10:59 UA Glucose 0 mg/dL Last Edit by Marko Bundy CMA on 02/04/23 10:59 Results Reviewed Results Reviewed: Laboratory Last Values Urine pH (Auto) 6.0 02/04/23 10:57 Specific [place] (Auto) 1.015 02/04/23 10:57 Urine Protein (Auto) 0 mg/dL 02/04/23 10:57 Glucose (UA)(Auto) 0 mg/dL 02/04/23 10:57 Urine Ketones (Auto) Negative 02/04/23 10:57 Urine Blood (Auto) 10 Issac/uL 02/04/23 10:57 Urine Nitrite (Auto) Negative 02/04/23 10:57 Urine Bilirubin (Auto) 0 mg/dL 02/04/23 10:57 Urine Urobilinogen (Auto) 0.2 mg/dL 02/04/23 10:57 Leukocyte Esterase (Auto) 125 Mikey/uL 02/04/23 10:57 Assessment & Plan Assessment & Plan (1) Cystitis: Code(s): N30.90 - Cystitis, unspecified without hematuria Plan: I think patient likely has flare-up of her interstitial cystitis. Her only symptom is urinary frequency and she denies fever or chills, dysuria, abdominal pain, flank or upper back pain, nausea vomiting or diarrhea, weakness or acute dizziness, or other significant associated symptoms complicated or complicated UTI. Urine dip today is only positive for leuks and blood. She was written for cefuroxime in a recent ED visit for a fall associated with vertigo, and apparently follow-up testing of her urine was unremarkable. I did write her for another course of cefuroxime and she will follow-up with her urologist in 2 weeks as she has planned. They can do further testing at that point and consider prophylaxis for interstitial cystitis flare if that is the case. She knows she can follow in the meantime if his symptoms change or worsen. She knows to go to the emergency department for worrisome symptoms. Plan patient does have follow-up in 2 weeks scheduled with Urology, and she can do further testing at that point. Orders: Orders AMB Urinalysis Automated 02/04/23 Z13.9 - Encounter for screening, unspecified Medications: New cefuroxime axetil 500 mg PO BID 7 days 14 tabs 0RF Coding Level of Care Code Est Pt Level 4 (53340) Diagnoses Cystitis N30.90
== END 2023-02-04 12:07 | disposition home or self-care (01) ==
PROVIDERS: PCP Internal Medicine; Visit Provider Physician Assistant Medical
DX: R35.0 Frequency of micturition (principal)
CPT/HCPCS: 81003; 99214

== ENCOUNTER 2023-02-22 08:05 | Outpatient (AMB) | payer MEDICARE, SELFPAY ==
--- NOTE | 2023-02-22 09:02 | MHC.OFFWIV ---
Intake Vital Signs 02/22/23 09:03 Height 5 ft 4 in Weight 181 lb BMI 31.1 BP 130/82 Blood Pressure Location Lt brachial Position Sitting Pulse 98 Pulse Source Pulse Oximeter Pulse Oximetry (%) 96 Oxygen Delivery Method Room Air Intake Visit Reasons: EP, rash all over body Intake Note: Patient here for possible allergic reaction to the sun. She has hives that are very itchy that she noticed last week. Patient Tobacco Use Status: Never used Tobacco Allergies levofloxacin [Levaquin] Adverse Reaction (Unknown, Verified 02/22/23 09:27) GI upset Medication List - Last Reconciled 02/22/23 by Hanane Jimenes, WHIPPED TOPPING SUPERVISOR- apremilast (Otezla) 30 mg PO BID biotin mcg PO cefuroxime axetil 500 mg PO BID 7 days cetirizine (Zyrtec) 10 mg PO DAILY PRN cholecalciferol (vitamin D3) 50 mcg PO DAILY escitalopram oxalate 20 mg PO DAILY gabapentin 100 mg PO DAILY lamotrigine 100 mg PO DAILY lorazepam 0.5 mg PO DAILY PRN losartan 50 mg PO DAILY meclizine 25 mg PO BID PRN mometasone 0.1% appl topical BID PRN omega-3 fatty acids-fish oil 360-1,200 mg (Fish Oil) 1 cap PO DAILY rosuvastatin (Crestor) 10 mg PO .every other day 90 days trazodone 50 - 100 mg PO BEDTIME Do you need a note to return to daycare/school/sports/work: No HPI HPI Comments History of Present Illness Details PRESENTS TODAY WITH COMPLAINTS OF ITCHY RASH AFFECTING ARMS AND BACK. STATES THIS STARTED ABOUT 10 DAYS AGO [place] HAS A KNOWN SUN SENSITIVITY [place] SP OF PROTECTION. THE RASH DEVELOPED WITHIN HOURS. SHE HAS BEEN USING BENADRYL WITHOUT RELIEF. DENIES FEVER CHILLS OTHER ALLERGIC EXPOSURES. REPORTS NO ONE ELSE HAS A RASH LIKE THIS. THIS HAS HAPPENED TO HER PREVIOUSLY. 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 Chronic gastritis Varicose veins of legs Psoriasis Environmental and seasonal allergies Dyslipidemia Chronic interstitial cystitis Right lumbar radiculitis Surgical History Hx of colonoscopy S/P debridement Family History Father Stroke Substance use disorder Mother HTN (hypertension) Asthma Breast cancer Brother Substance use disorder Social History Housing: House Alcohol intake: never Patient Tobacco Use Status: Never used Tobacco e-Cigarette/Vaping Use: Never Used Second Hand Smoke Exposure: No service: No Current occupational status: employed Cognitive needs: No Hearing needs: No Vision needs: No Review of Systems Const All systems reviewed & are unremarkable except as noted in HPI and below Physical Exam Vital Signs: Last Vital Signs Pulse 98 02/22/23 09:03 BP 130/82 02/22/23 09:03 Pulse Ox 96 02/22/23 09:03 Oxygen Delivery Method Room Air 02/22/23 09:03 BMI result Body Mass Index 31.1 Const Other: AWAKE ALERT, MILDLY ANXIOUS SPEAKING IN FULL SENTENCES DIFFUSE PAPULAR RASH NOTED TO BILAT ARMS AND ACROSS SHOULDER BLADES W/ SOME SUPERFICIAL EXCORIATIONS W/O SIGNS OF INFECTION. 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 TAKE STEROID TAPER DIRECTED. IN ADDITION USE PEPCID FOR 30 DAYS. SHE HAS A TOPICAL STEROID CREAM AT HOME THAT SHE USES FOR PSORIASIS I HAVE ADVISED HER TO USE THIS ON THE RASH WELL. SHE WAS ADVISED TO COME BACK FOR SIGNS AND SYMPTOMS OF INFECTION THAT COULD CERTAINLY OCCUR IF SHE IS SCRATCHING THE SKIN. SHE SHOULD ALSO COME BACK IF THE RASH WERE TO RECUR AFTER THE STEROID TAPER. Code(s): L56.8 - Other specified acute skin changes due to ultraviolet radiation Medications: New famotidine (Pepcid AC) 20 mg PO BEDTIME 30 tabs 0RF prednisone 5 tabs x 2 days, 4 tabs x 2 days, 3 tabs x 2 days, 2 tabs x 2 days, 1 tab x 2 days and then STOP. 10 mg PO DIRECTED 30 tabs 0RF 10 days Coding Level of Care Code Est Pt Level 3 (99116) Diagnoses Photosensitivity dermatitis due to sun L56.8
[2023-02-22 09:03] VITALS: BP 130/82; PULSE 98; O2SAT 96; BMI 31.1
== END 2023-02-22 09:55 | disposition home or self-care (01) ==
PROVIDERS: PCP Internal Medicine; Visit Provider Nurse Practitioner Family
DX: L56.8 Other specified acute skin changes due to ultraviolet radiation (principal)
CPT/HCPCS: 99213

== ENCOUNTER 2023-02-22 11:14 | Outpatient (AMB) | payer MEDICARE, SELFPAY ==
--- NOTE | 2023-02-22 11:17 | A.OFFVIS_ITS ---
Intake Intake Visit Reasons: IC w Hematuria/Frequency of Urine Intake Note: New Patient presents for initial visit for interstitial cystitis /frequency Urology Medications: none Blood Thinner: none PVR:0ml's Subsorter Required: No Accompanied by: Self / Same As Patient Allergies levofloxacin [Levaquin] Adverse Reaction (Unknown, Verified 02/22/23 12:10) GI upset Medication List - Last Reconciled 02/22/23 by OLAMIDE ZepedaP- apremilast (Otezla) 30 mg PO BID biotin mcg PO cefuroxime axetil 500 mg PO BID 7 days cetirizine (Zyrtec) 10 mg PO DAILY PRN cholecalciferol (vitamin D3) 50 mcg PO DAILY escitalopram oxalate 20 mg PO DAILY famotidine (Pepcid AC) 20 mg PO BEDTIME gabapentin 100 mg PO DAILY lamotrigine 100 mg PO DAILY lorazepam 0.5 mg PO DAILY PRN losartan 50 mg PO DAILY meclizine 25 mg PO BID PRN mometasone 0.1% appl topical BID PRN omega-3 fatty acids-fish oil 360-1,200 mg (Fish Oil) 1 cap PO DAILY prednisone 10 mg PO DIRECTED 10 days rosuvastatin (Crestor) 10 mg PO .every other day 90 days trazodone 50 - 100 mg PO BEDTIME HPI HPI Comments 2 History of Present Illness Details Miriam is a very pleasant 73-year-old female patient of Dr. Roa. She has a past medical history of anxiety, depression, hypertension, Agosto's esophagus, chronic gastritis, varicose veins, psoriasis, dyslipidemia, and lumbar radiculitis. She presents to the office today as a new patient for microscopic hematuria and lower urinary tract symptoms. She reports since the age of [age] years old being diagnosed with interstitial cystitis. She discusses have seeked support groups in [place] for her longstanding interstitial cystitis. Discussion with the patient today she reports new onset recurrent urinary tract infections over the last 6 months. She reports not noting the difference between urinary tract infection and symptoms of interstitial cystitis. She reports experiencing urinary frequency, urinary urgency, bladder pressure, and nocturia. She denies incontinence, hematuria, flank pain, fever, and or chills. She reports previously following up with [facility] for many years and has tried multiple oral therapies for interstitial cystitis including oxybutynin, Myrbetriq, VESIcare, Elmiron, amitriptyline, gabapentin, and Detrol. She reports no significant improvement in lower urinary tract symptoms on any of these medications. She does report having had somewhat improvement in urinary symptoms when on amitriptyline however this made her very fatigued. She reports following interstitial cystitis diet with no improvement in lower urinary tract symptoms. She endorses to be drinking plenty of water daily. Discussed trial of low-dose antibiotic therapy verses low-dose Cialis verses rescue solutions. In office urinalysis results reviewed with the patient today. Will send urine for microgen testing for further assessment evaluation. Discussed pelvic floor therapy. [facility] Medical History Dizziness after extension of neck Interstitial cystitis (chronic) with hematuria Anxiety and depression Chronic left hip pain Essential hypertension Hip bursitis, left Positional lightheadedness Depression, major, in partial remission Hx of breast cancer Preoperative examination Essential hypertension Osteopenia of left femoral neck Tubular adenoma of colon 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 Chronic gastritis Varicose veins of legs Psoriasis Environmental and seasonal allergies Dyslipidemia Chronic interstitial cystitis Right lumbar radiculitis Surgical History Hx of colonoscopy S/P debridement Family History Father Stroke Substance use disorder Mother HTN (hypertension) Asthma Breast cancer Brother Substance use disorder Social History Housing: House Alcohol intake: never Patient Tobacco Use Status: Never used Tobacco e-Cigarette/Vaping Use: Never Used Second Hand Smoke Exposure: No service: No Current occupational status: employed Cognitive needs: No Hearing needs: No Vision needs: No Review of Systems Const Reports as per HPI Eyes Reports no additional complaints ENT Reports no additional complaints Card Reports as per HPI Resp Reports no additional complaints GI Reports as per HPI Reports as per HPI Musc Reports as per HPI Neuro Reports no additional complaints Psych Reports as per HPI Endo Reports no additional complaints Abdoulaye/Lymph Reports no additional complaints Aller/Immun Reports no additional complaints Physical Exam Const General: cooperative, healthy appearing, comfortable, no acute distress, well developed, alert and awake Orientation/consciousness: patient oriented x3 Limitations: no limitations HEENT Head: Yes normal to inspection, Yes normocephalic and Yes atraumatic Ears: hearing grossly normal bilaterally Eyes General: appearance normal, both eyes and all related structures Neck Neck: Yes normal visual inspection and Yes trachea midline Chest Chest palpation & inspection: normal inspection of the chest Resp Effort & Inspection: normal respiratory effort and able to speak in complete sentences Cardio Rate: regular rate GI Inspection: Yes normal to inspection General: Yes no CVA tenderness Back/Spine/Pelvis Back: no CVA tenderness Skin General skin exam: no rashes or lesions noted Neuro General: patient oriented x3 Extrem General: Yes normal to inspection Psych Appearance: grossly normal and well kempt Mental Status: mental status grossly normal Speech and movement: Normal speech and movement present and Clear speech present Affect: normal affect Attitude: cooperative Thought process: Normal thought process present Thought content: Normal thought content present Insight: Fair insight present (Psych) Judgement: Fair judgement present (Psych) Office Procedures Post Void Residual Post Residual Void Post Void Residual (PVR): 0 [id number]-[id number] Void Residual by ultrasound Results AMB Urinalysis, Automated UA Leukoctes 125 Mikey/uL Last Edit by CryptoSeal on 02/22/23 11:43 UA Nitrite Negative Last Edit by CryptoSeal on 02/22/23 11:43 UA Urobilinogen 0.2 mg/dL Last Edit by CryptoSeal on 02/22/23 11:43 UA Protein 15 mg/dL Last Edit by CryptoSeal on 02/22/23 11:43 UA pH 7.0 Last Edit by CryptoSeal on 02/22/23 11:43 UA Blood 10 Issac/uL Last Edit by CryptoSeal on 02/22/23 11:43 UA Specific [place] 1.015 Last Edit by CryptoSeal on 02/22/23 11:43 UA Ketone Negative Last Edit by CryptoSeal on 02/22/23 11:43 UA Bilirubin 0 mg/dL Last Edit by CryptoSeal on 02/22/23 11:43 UA Glucose 0 mg/dL Last Edit by CryptoSeal on 02/22/23 11:43 Results Reviewed Results Reviewed: Laboratory Last Values Urine pH (Auto) 7.0 02/22/23 11:27 Specific [place] (Auto) 1.015 02/22/23 11:27 Urine Protein (Auto) 15 mg/dL 02/22/23 11:27 Glucose (UA)(Auto) 0 mg/dL 02/22/23 11:27 Urine Ketones (Auto) Negative 02/22/23 11:27 Urine Blood (Auto) 10 Issac/uL 02/22/23 11:27 Urine Nitrite (Auto) Negative 02/22/23 11:27 Urine Bilirubin (Auto) 0 mg/dL 02/22/23 11:27 Urine Urobilinogen (Auto) 0.2 mg/dL 02/22/23 11:27 Leukocyte Esterase (Auto) 125 Mikey/uL 02/22/23 11:27 Assessment & Plan Assessment & Plan (1) Microscopic hematuria: Code(s): R31.29 - Other microscopic hematuria (2) Sensation of pressure in bladder area: Code(s): R39.89 - Other symptoms and signs involving the genitourinary system (3) Urinary frequency: Code(s): R35.0 - Frequency of micturition (4) Urinary urgency: Code(s): R39.15 - Urgency of urination (5) Lower urinary tract symptoms: Code(s): R39.9 - Unspecified symptoms and signs involving the genitourinary system Plan In office urinalysis results reviewed with the patient today; will send for microgen testing Will obtain retroperitoneal ultrasound for further assessment evaluation. Discussed further treatment options for interstitial cystitis at length Information provided on pelvic floor therapy/exercises Discussed bladder triggers/irritants Discussed and stressed the importance of drinking plenty of water daily Discussed near future in office cystoscopy if symptoms persist and/or worsen Follow-up in 6 weeks with imaging to be completed prior; or sooner with any issues, concerns, or questions. Orders: Orders AMB Urinalysis Automated Today Z13.9 - Encounter for screening, unspecified US retroperitoneal comp Today R31.29 - Other microscopic hematuria, R35.0 - Frequency of micturition, R39.15 - Urgency of urination, R39.89 - Other symptoms and signs involving the genitourinary system, R39.9 - Unspecified symptoms and signs involving the genitourinary system AMB Post Void Residual by ultrasound Today N30.11 - Interstitial cystitis (chronic) with hematuria Patient Instructions: The patient had an opportunity to ask questions regarding the treatment plan. All questions were answered. Physical exam, labs, and imaging were discussed and reviewed in detail. As well as risks, benefits, and discussion of treatment choices. No major barriers to understanding were identified. The patient expressed understanding and agreement with the above treatment plan. The patient was made aware they should contact our office by phone for worsening of their current condition, the appearance of new symptoms, or with any questions or concerns. Compliance is encouraged with any medications and follow up testing that is ordered. It is a privilege to be allowed the opportunity to participate in? your urological care.? Again, if you have any questions or concerns If you have any questions or concerns please do not hesitate to contact me. The office is [phone]. This note is constructed using voice recognition software. While every effort has been made to ensure accuracy fur blender errors may have been included. Yours sincerely, BRUCE Zepeda Coding Level of Care Code New Pt Level 3 (47825) Diagnoses Microscopic hematuria R31.29 Sensation of pressure in bladder area R39.89 Urinary frequency R35.0 Urinary urgency R39.15 Lower urinary tract symptoms R39.9 CPT Codes Post Residual Void - PVR CPT Code: 85986-Yccq Void Residual by ultrasound ([id number])
== END 2023-02-22 12:05 | disposition home or self-care (01) ==
PROVIDERS: PCP Internal Medicine; Referring Provider Internal Medicine; Visit Provider Nurse Practitioner Family
DX: R31.29 Other microscopic hematuria (principal); R39.89 Other symptoms and signs involving the genitourinary system; R35.0 Frequency of micturition; R39.15 Urgency of urination; R39.9 Unspecified symptoms and signs involving the genitourinary system; Z13.9 Encounter for screening, unspecified
CPT/HCPCS: 99203

== ENCOUNTER → 2023-02-22 11:14 | Outpatient (BNVA) | payer MEDICARE, SELFPAY | PROVIDERS: PCP Internal Medicine; Referring Provider Internal Medicine; Visit Provider Nurse Practitioner Family | DX: R31.29 Other microscopic hematuria (principal); R39.89 Other symptoms and signs involving the genitourinary system; R35.0 Frequency of micturition; R39.15 Urgency of urination; R39.9 Unspecified symptoms and signs involving the genitourinary system | CPT/HCPCS: 51798; 81003 ==

== ENCOUNTER 2023-11-07 07:46 | Outpatient (REF) | payer MEDICARE, SELFPAY ==
[2023-11-07 12:22] LABS: Alanine Aminotransferase 14 U/L (0-31); Anion Gap 13 (12-20); Aspartate Amino Transferase 15 U/L (5-31); Blood Urea Nitrogen 20 mg/dL (9-16); Calcium 9.5 mg/dL (8.4-10.2); Carbon Dioxide 26 mmol/L (22-29); Chloride 108 mmol/L (96-108); Cholesterol 205 mg/dL (<200); Estimated Glomerular Filt Rate > 60; Glucose Fasting 92 mg/dL (60-99); HDL Cholesterol 58 mg/dL (>40); LDL Cholesterol Calculated 121 mg/dL (<100); Sodium 143 mmol/L (135-145); Triglycerides 133 mg/dL (<150)
== END 2023-11-07 07:47 | disposition home or self-care (01) ==
LOC: HO.HMGCLDS 07:46
PROVIDERS: PCP Internal Medicine; Visit Provider Internal Medicine
DX: I10 Essential (primary) hypertension (principal); E78.5 Hyperlipidemia, unspecified
CPT/HCPCS: 36415; 80048; 80061; 84450; 84460

== ENCOUNTER 2024-03-12 12:48 | Outpatient (AMB) | payer MEDICARE, SELFPAY ==
[2024-03-12 12:53] VITALS: BP 120/84; PULSE 76; O2SAT 97; BMI 31.8
--- NOTE | 2024-03-12 12:53 | MHC.PC.OV ---
Vital Signs 03/12/24 12:53 Height 5 ft 4 in Weight 185 lb BMI 31.8 BP 120/84 Blood Pressure Location Lt brachial Position Sitting Pulse 76 Pulse Source Pulse Oximeter Pulse Oximetry (%) 97 Oxygen Delivery Method Room Air Intake Visit Reasons: 6M Follow UP Intake Note: Pt is here today for 6 months follow up visit. Allergies levofloxacin [Levaquin] Adverse Reaction (Unknown, Verified 03/12/24 13:11) GI upset Medication List - Last Reconciled 03/12/24 by Margaret Roa MD biotin mcg PO cetirizine (Zyrtec) 10 mg PO DAILY PRN cholecalciferol (vitamin D3) 50 mcg PO DAILY deucravacitinib (Sotyktu) 6 mg PO DAILY escitalopram oxalate 20 mg PO DAILY famotidine (Pepcid AC) 20 mg PO BEDTIME PRN gabapentin 200 mg PO DAILY lamotrigine 100 mg PO DAILY losartan 50 mg PO DAILY mometasone 0.1% appl topical BID PRN omega-3 fatty acids-fish oil 360-1,200 mg (Fish Oil) 1 cap PO DAILY rosuvastatin (Crestor) 10 mg PO .every other day 90 days trazodone 50 - 100 mg PO BEDTIME Tobacco use date assessed: 03/12/24 Fall risk assessment: 1 Fall in past year Last assessed Fall Risk: 03/12/24 Dental Screening Dental Screen Date: 03/12/24 Did you have a dental visit in the last 12 months?: Yes Did you have a dental problem in the last 6 months where you did not have access to dental care?: No Was dental information given to patient?: Patient has dentist HPI 6M Follow UP HPI Details 74-year-old lady with hypertension and dyslipidemia, here today for her follow-up. She has been compliant with taking her medications, blood pressure has been stable and controlled with present treatment. Currently taking rosuvastatin 10 mg taken 1 tablet every other day for her dyslipidemia, due for recheck on her lipids. She is also here complaining of urinary frequency and pressure on her lower abdominal area. Patient has been diagnosed with interstitial cystitis in the past and has tried multiple treatments all of which has not afforded any relief. Denies any accompanying back pain, has been afebrile, no chills or nausea reported. [facility] Medical History (Updated 03/12/24 @ 13:29 by Margaret Roa MD) Dizziness after extension of neck Interstitial cystitis (chronic) with hematuria Anxiety and depression Chronic left hip pain Essential hypertension Hip bursitis, left Positional lightheadedness Depression, major, in partial remission Hx of breast cancer Preoperative examination Essential hypertension Osteopenia of left femoral neck Tubular adenoma of colon 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 Chronic gastritis Varicose veins of legs Psoriasis Environmental and seasonal allergies Dyslipidemia Chronic interstitial cystitis Right lumbar radiculitis Surgical History Hx of colonoscopy S/P debridement Family History Father Stroke Substance use disorder Mother HTN (hypertension) Asthma Breast cancer Brother Substance use disorder Social History Housing: House Alcohol intake: never Patient Tobacco Use Status: Never used Tobacco e-Cigarette/Vaping Use: Never Used Second Hand Smoke Exposure: No service: No Current occupational status: employed Cognitive needs: No Hearing needs: No Vision needs: No Questionnaire PHQ-9 Over the last 2 weeks, how often have you been bothered by any of the following problems? 1. Little interest or pleasure in doing things: several days 2. Feeling down, depressed, or hopeless: not at all 3. Trouble falling or staying asleep, or sleeping too much: several days 4. Feeling tired or having little energy: several days 5. Poor appetite or overeating: several days 6. Feeling bad about yourself - or that you are a failure or have let yourself or your family down: not at all 7. Trouble concentrating on things, such as reading the newspaper or watching television: not at all 8. Moving or speaking so slowly that other people could have noticed. Or the opposite - being so fidgety or restless that you have been moving around a lot more than usual: not at all 9. Thoughts that you would be better off or of hurting yourself in some way: not at all Total score: 4 Depression Screening Interpretation: Negative Depression Screening Done: Yes 24081 - PHQ-9 Billing: Yes Source: Developed by Drs. Keith Peralta, Ca Blandon, Marvin Byrnes and colleagues, with an educational yecenia from [employer]. Thrive Questionnaire Date Thrive assessed: 03/12/24 I am a: Patient What is your living situation today?: I have a steady place to live Within the past 12 months, did the food you bought not last and you didn't have the money to get more?: Never true Within the past 12 months, did you worry whether your food would run out before you got money to buy more?: Never true Do you have trouble paying for medicines?: No Do you have trouble getting transportation to medical appointments?: No Do you have trouble paying your heating and electricity bill?: No Do you have trouble taking care of your child, family member or friend?: No Do you have trouble with day-to-day activities such as bathing, preparing meals, shopping, managing finances, etc.?: No Are you currently unemployed and looking for a job?: No Are you interested in more education?: No Please select the resources that you would like help with: None Currently or been in a relationship where the following occur: I choose not to answer THRIVE Score: 0 AUDIT C Alcohol Use Questionnaire (AUDIT-C) 1. How often do you have a drink containing alcohol?: Monthly or less 2. How many drinks containing alcohol do you have on a typical day when you are drinking?: 1 or 2 3. How often do you have six or more drinks on one occasion?: Never Total Score: 1 SCOTT-7 AMB Questionnaire SCOTT-7 Date SCOTT - 7 assessed: 03/12/24 Feeling nervous, anxious, or on edge: 0 = Not at all Not being able to stop or control worryin = Not at all Worrying too much about different things: 0 = Not at all Trouble relaxin = Not at all Being so restless that it is hard to sit still: 0 = Not at all Becoming easily annoyed or irritable: 0 = Not at all Feeling afraid as if something awful might happen: 0 = Not at all Total SCOTT-7 score (0-4 normal; 5-9 mild; 10-14 moderate; 15-21 severe): 0 Source: Developed by Ca StokesMarvin and colleagues, with an educational yecenia from [employer]. SCOTT-7 Assessment Billing SCOTT-7 Assessment Tool: SCOTT-7 Assessment 51866 Review of Systems Const Reports as per HPI Eyes Reports no additional complaints ENT Reports no additional complaints Card Reports as per HPI Resp Reports no additional complaints GI Reports as per HPI Reports as per HPI Musc Reports as per HPI Neuro Reports no additional complaints Psych Reports as per HPI Endo Reports no additional complaints Abdoulaye/Lymph Reports no additional complaints Aller/Immun Reports no additional complaints Physical exam (Primary Care) Vital Signs: Last Vital Signs Pulse 76 03/12/24 12:53 BP 120/84 03/12/24 12:53 Pulse Ox 97 03/12/24 12:53 Oxygen Delivery Method Room Air 03/12/24 12:53 BMI result Body Mass Index 31.8 Tobacco/Smoking Status: Tobacco use Status Tobacco use date assessed 03/12/24 03/12/24 13:02 Patient Tobacco Use Status Never used Tobacco 03/12/24 13:02 e-Cigarette/Vaping Use Never Used 03/12/24 13:02 PHQ-9: PHQ-9 Score PHQ-9: Total score 5 03/12/24 13:46 Depression Screening Interpretation: Negative Thrive Assessment: Date of Thrive Assessment Date Thrive assessed 03/12/24 03/12/24 13:06 Currently or been in a relationship where the following occur: I choose not to answer Const General: comfortable, no acute distress and alert Nutritional Appearance: obese Orientation/consciousness: patient oriented x3 HENMT Head: Yes normocephalic General nose exam: Normal external nose present Face and sinus: Yes face symmetric Neck Neck: Yes full ROM (Gets dizzy when she tilts her head backwards), Yes no lymphadenopathy and Yes supple Resp Auscultation: clear to auscultation bilaterally Cardio Other: S1-S2 present regular rate and rhythm GI Palpation (GI): Soft to palpation, nontender, no guarding and no masses General: Yes no CVA tenderness Back/Spine/Pelvis Back: no CVA tenderness Neuro Other: Ambulatory with assistance of a cane General: patient oriented x3, moves all extremities, Normal light touch and pain sensation, no focal motor deficits and CN's II-XI intact bilaterally Extrem General: Yes full ROM, Yes no joint enlargement and Yes no clubbing, cyanosis or edema Results AMB Urinalysis, Automated UA Leukoctes 70 Mikey/uL Last Edit by Carlene Arthur Arpan on 03/12/24 13:37 UA Nitrite Negative Last Edit by Carlene Arthur Arpan on 03/12/24 13:37 UA Urobilinogen 0.2 mg/dL Last Edit by Carlene Arthur [facility] on 03/12/24 13:37 UA Protein 15 mg/dL Last Edit by Carlene Arthur Arpan on 03/12/24 13:37 UA pH 5.5 Last Edit by Carlene Arthur [facility] on 03/12/24 13:37 UA Blood 25 Issac/uL Last Edit by Carlene Arthur [facility] on 03/12/24 13:37 UA Specific [place] 1.030 Last Edit by Carlene Arthur [facility] on 03/12/24 13:37 UA Ketone Negative Last Edit by Carlene Arthur Arpan on 03/12/24 13:37 UA Bilirubin 0 mg/dL Last Edit by Carlene Arthur Arpan on 03/12/24 13:37 UA Glucose 0 mg/dL Last Edit by Carlene Arthur [facility] on 03/12/24 13:37 Results Reviewed Results Reviewed: Laboratory Last Values Urine pH (Auto) 5.5 03/12/24 13:36 Specific [place] (Auto) 1.030 03/12/24 13:36 Urine Protein (Auto) 15 mg/dL 03/12/24 13:36 Glucose (UA)(Auto) 0 mg/dL 03/12/24 13:36 Urine Ketones (Auto) Negative 03/12/24 13:36 Urine Blood (Auto) 25 Issac/uL 03/12/24 13:36 Urine Nitrite (Auto) Negative 03/12/24 13:36 Urine Bilirubin (Auto) 0 mg/dL 03/12/24 13:36 Urine Urobilinogen (Auto) 0.2 mg/dL 03/12/24 13:36 Leukocyte Esterase (Auto) 70 Mikey/uL 03/12/24 13:36 Coding Level of Care Code Est Pt Level 4 (59220) Complex EM visit Add On G2211 Diagnoses Essential hypertension I10 Dyslipidemia E78.5 Urinary frequency R35.0 Additional Codes SCOTT-7 Assessment Billing - SCOTT-7 Assessment Tool: SCOTT-7 Assessment 99313 ([id number]) Assessment & Plan Assessment & Plan (1) Essential hypertension: Code(s): I10 - Essential (primary) hypertension Category: Medical Plan: Blood pressure at goal, will continue on losartan 50 mg daily, reinforced importance of following a low-salt diet and regular exercise is important in maintaining blood pressure control. (2) Dyslipidemia: Code(s): E78.5 - Hyperlipidemia, unspecified Category: Medical Plan: Last fasting lipid profile showed levels within normal limits but higher than last check, fasting lipid panel ordered . Continue rosuvastatin 10 mg 1 tablet every other day , in addition to adherence to low-cholesterol diet and regular exercise, at least 30 minutes 3 to 4 times a week. Advised patient to make healthy food choices, eat more fruits, vegetables, whole grains, wild caught fish and low-fat dairy. Limit amount of meat and fried or fatty food products, as well as processed foods and fast foods. (3) Urinary frequency: Code(s): R35.0 - Frequency of micturition Category: Medical Plan: Urinalysis done today showed presence of some blood and leukocytes no nitrites. Will empirically treat patient with nitrofurantoin monohydrate crystals 100 mg per capsule to take 1 every 12 hours for 10 days Orders: Orders Lipid Panel 03/12/24 E78.5 - Hyperlipidemia, unspecified, I10 - Essential (primary) hypertension, M85.852 - Other specified disorders of bone density and structure, left thigh Alanine Aminotransferase 03/12/24 E78.5 - Hyperlipidemia, unspecified, I10 - Essential (primary) hypertension, M85.852 - Other specified disorders of bone density and structure, left thigh UA CC w/rflx Micro + Cult 03/12/24 R35.0 - Frequency of micturition Basic Metabolic Panel Fasting 08/13/24 E78.5 - Hyperlipidemia, unspecified, I10 - Essential (primary) hypertension Lipid Panel 08/13/24 E78.5 - Hyperlipidemia, unspecified, I10 - Essential (primary) hypertension Aspartate Amino Transferase 08/13/24 E78.5 - Hyperlipidemia, unspecified, I10 - Essential (primary) hypertension Aspartate Amino Transferase 03/12/24 E78.5 - Hyperlipidemia, unspecified, I10 - Essential (primary) hypertension, M85.852 - Other specified disorders of bone density and structure, left thigh Vitamin D 25-OH Total 03/12/24 E78.5 - Hyperlipidemia, unspecified, I10 - Essential (primary) hypertension, M85.852 - Other specified disorders of bone density and structure, left thigh Basic Metabolic Panel Fasting 03/12/24 E78.5 - Hyperlipidemia, unspecified, I10 - Essential (primary) hypertension, M85.852 - Other specified disorders of bone density and structure, left thigh AMB Urinalysis Automated 03/12/24 Z13.9 - Encounter for screening, unspecified Alanine Aminotransferase 08/13/24 E78.5 - Hyperlipidemia, unspecified, I10 - Essential (primary) hypertension Medications: New nitrofurantoin monohyd/m-cryst 100 mg must administer with a meal/food 100 mg PO Q12H 10 days 20 caps 0RF Changed From rosuvastatin (Crestor) 1 tablet every other day 10 mg PO .every other day 90 days 45 tabs 4RF E78.5 - Hyperlipidemia, unspecified To rosuvastatin 1 tablet every other day 10 mg PO .every other day 90 days 45 tabs 4RF E78.5 - Hyperlipidemia, unspecified Refilled losartan 50 mg PO DAILY 90 tabs 4RF
== END 2024-03-12 14:15 | disposition home or self-care (01) ==
LOC: HO.HMCC 12:49
PROVIDERS: PCP Internal Medicine; Visit Provider Internal Medicine
DX: I10 Essential (primary) hypertension (principal); E78.5 Hyperlipidemia, unspecified; R35.0 Frequency of micturition

== ENCOUNTER 2024-03-12 12:48 | Outpatient (REF) | payer MEDICARE, SELFPAY ==
[2024-03-12 17:02] LABS: Appearance Urine Turbid; Color Urine Yellow; Glucose Urine UA Negative (Negative); Leukocyte Esterase Urine Moderate (2+) (Negative); Nitrite Urine Negative (Negative); PH 5.5 (5.0-9.0); Specific Gravity - Urine >= 1.030 (1.005-1.025); UMIC TRIGGER UACC YES; Urine Blood Trace (Negative); Urine Ketones Trace mg/dL (Negative); Urine Protein Trace mg/dL (Neg-Trace)
[2024-03-12 17:52] LABS: Bacteria Urine None Seen (None Seen); Calcium Oxalate Crystals Urine Present; Squamous Epithelial Cell Urine >20 /HPF (0-2); UACC Culture Trigger YES; WBC Urine >50 /HPF (0-5)
== END 2024-03-12 12:49 | disposition home or self-care (01) ==
LOC: HO.LAB 12:48
PROVIDERS: PCP Internal Medicine; Visit Provider Internal Medicine
DX: I10 Essential (primary) hypertension (principal); E78.5 Hyperlipidemia, unspecified; R35.0 Frequency of micturition; M85.852 Other specified disorders of bone density and structure, left thigh
CPT/HCPCS: 81001; 81003; 87086; 96127; 99212

== ENCOUNTER 2024-11-11 08:23 | Outpatient (REF) | payer MEDICARE, SELFPAY ==
--- OUTSIDE RECORDS SUMMARY | 2024-11-11 08:31 | XMS_ITS | Patient Health Record ---
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 Name Role Phone Janina KRAFT, Margaret Primary Care Provider Keith Arora Unavailable [phone] Allergies Allergen (clinical drug ingredient) Drug/Non Drug Allergy documented on EMR Reaction Allergy Type Onset Date Status levaquin (uncoded) Unknown Allergy A ctive Reason For Referral No Information Medications Medication SIG (Take, Route, Fr equency, Duration) Notes Start Date End Date Status OsmoPrep 1.102-0.398 GM as directed Oral ly as directed for 2 day(s) 02/13/2013 Active Omeprazole 40 MG 1 capsule Orally 1 c apsule QAM for 30 Active Multivitamin Active Claritin Active metFORMIN HCl Active Crestor Active Zofran 4 MG as directed Orally 06/11/2013 Active Citalopram Hydrobromide Active Zofran ODT 4 MG as directed Orally 1 every 4-6 hours for nausea for 2 days 06/11/2013 Active MoviPrep 100 GM as directed Orally 02/13/2013 Active Problems Problem Type SNOMED Code ICD Code Onset Dates Problem Status W/U Status Risk Notes Problem Esophageal reflux (444746461) Esophageal reflux (530.81) Active confirmed Problem Agosto's esophagus (566464723) 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 Problem Colon cancer screening (V76.51) Active confirmed Problem History of adenomatous polyp of colon (066765398) History of adenomatous polyp of colon (V12.72) Active confirmed Plan Of Treatment Future Test Test Name Order Date UPPER GI ENDOSCOPY 02/13/2013 COLONOSCOPY 02/13/2013 Insurance Providers Payer Name Payer Address Payer Phone Subscriber Number Group Number Insured Name Patient Relationship to Insured Coverage Start Date Coverage End Date [facility] [address] [place], [place] [id number] [phone] [id number] YONI PABLO Self - patient is the insured MEDICARE OF [place] [address] [place] [address] [phone] [id number] YONI PABLO Self - patient is the insured Medical (General) History Medical History History ICD Code GERD with Agosto's esophagu s-EGD in 12/2008 with a small to mod-sized HH-tiny area of Agosto's esophagus-no dysplasia Tubular adenomas removed 12/2008 hyperlipidemia Denies NH,DM,CVA,Lung disease,renal dise ase interstitial cystitis Depression Takes Metformin for pre-diabetes altho ugh blood sugar was 98 Surgical History Surgery Date(Month/Year) appendectomy surgery for torticollis as a child Laser vein surgery on her legs
[2024-11-11 10:50] LABS: Alanine Aminotransferase 16 U/L (0-31); Anion Gap 12 (12-20); Aspartate Amino Transferase 22 U/L (5-31); Blood Urea Nitrogen 21 mg/dL (9-16); Calcium 8.9 mg/dL (8.4-10.2); Carbon Dioxide 26 mmol/L (22-29); Chloride 108 mmol/L (96-108); Cholesterol 170 mg/dL (<200); Estimated Glomerular Filt Rate > 60; Glucose Fasting 95 mg/dL (60-99); HDL Cholesterol 56 mg/dL (>40); LDL Cholesterol Calculated 85 mg/dL (<100); Sodium 142 mmol/L (135-145); Triglycerides 147 mg/dL (<150)
== END 2024-11-11 08:24 | disposition home or self-care (01) ==
LOC: HO.HMGCLDS 08:23
PROVIDERS: PCP Internal Medicine; Visit Provider Internal Medicine
DX: E78.5 Hyperlipidemia, unspecified (principal); I10 Essential (primary) hypertension
CPT/HCPCS: 36415; 80048; 80061; 84450; 84460

== ENCOUNTER 2024-11-13 11:36 | Outpatient (AMB) | payer MEDICARE, SELFPAY ==
--- NOTE | 2024-11-13 12:24 | A.OFFPC_ITS ---
Vital Signs 11/13/24 12:25 Height 5 ft 4 in Weight 182 lb BMI 31.2 BP 110/80 Blood Pressure Location Lt brachial Position Sitting Respiration 15 Pulse 71 Pulse Source Pulse Oximeter Temp 97.8 F Temp Source Oral Pulse Oximetry (%) 95 Oxygen Delivery Method Room Air Intake Visit Reasons: 6m follow up Intake Note: Pt is here today for her 6mo. f/u Allergies levofloxacin (Levaquin) Adverse Reaction (Unknown, Verified 11/13/24 12:36) GI upset Medication List - Last Reconciled 11/13/24 by Margaret Roa MD biotin mcg PO cetirizine (Zyrtec) 10 mg PO DAILY PRN cholecalciferol (vitamin D3) 50 mcg PO DAILY deucravacitinib (Sotyktu) 6 mg PO DAILY escitalopram oxalate 20 mg PO DAILY famotidine (Pepcid AC) 20 mg PO BEDTIME PRN gabapentin 200 mg PO DAILY lamotrigine 100 mg PO DAILY losartan 50 mg PO DAILY mometasone 0.1% appl topical BID PRN rosuvastatin 10 mg PO .every other day 90 days trazodone 50 - 100 mg PO BEDTIME Tobacco use date assessed: 03/12/24 Fall risk assessment: 2 + Falls in past year Last assessed Fall Risk: 11/13/24 Dental Screening Dental Screen Date: 03/12/24 Did you have a dental visit in the last 12 months?: Yes Did you have a dental problem in the last 6 months where you did not have access to dental care?: No Was dental information given to patient?: Patient has dentist HPI 6m follow up HPI Details 74-year-old lady with hypertension and d yslipidemia, here today for her follow-up. She has been compliant with taking her medications, blood pressure has been stable and controlled with present treatment. Currently taking rosuvastatin 10 mg taken 1 tablet every other day for her dyslipidemia, due for recheck on her lipids. She has been feeling well except for recurrent episodes of lightheadedness especially when she tilts her head backwards gets up too quick from a lying or sitting position. Has had benign positional vertigo in the past which was treated with a physical therapy. Patient would like a referral to see them again . 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 Chronic gastritis Varicose veins of legs Psoriasis Environmental and seasonal allergies Dyslipidemia Chronic interstitial cystitis Right lumbar radiculitis Surgical History Hx of colonoscopy S/P debridement Family History Father Stroke Substance use disorder Mother HTN (hypertension) Asthma Breast cancer Brother Substance use disorder Social History Housing: House Alcohol intake: never Patient Tobacco Use Status: Never used Tobacco e-Cigarette/Vaping Use: Never Used Second Hand Smoke Exposure: No service: No Current occupational status: employed Cognitive needs: No Hearing needs: No Vision needs: Yes Questionnaire PHQ-9 Over the last 2 weeks, how often have you been bothered by any of the following problems? 1. Little interest or pleasure in doing things: not at all 2. Feeling down, depressed, or hopeless: not at all 3. Trouble falling or staying asleep, or sleeping too much: not at all 4. Feeling tired or having little energy: not at all 5. Poor appetite or overeating: not at all 6. Feeling bad about yourself - or that you are a failure or have let yourself or your family down: not at all 7. Trouble concentrating on things, such as reading the newspaper or watching television: not at all 8. Moving or speaking so slowly that other people could have noticed. Or the opposite - being so fidgety or restless that you have been moving around a lot more than usual: not at all 9. Thoughts that you would be better off or of hurting yourself in some way: not at all Total score: 0 Depression Screening Interpretation: Negative Depression Screening Done: Yes Source: Developed by Drs. Keith Peralta, Ca Blandon, Marvin Byrnes and colleagues, with an educational yecenia from [facility]. Thrive Questionnaire Date Thrive assessed: 03/12/24 I am a: Patient What is your living situation today?: I have a steady place to live Within the past 12 months, did the food you bought not last and you didn't have the money to get more?: Never true Within the past 12 months, did you worry whether your food would run out before you got money to buy more?: Never true Do you have trouble paying for medicines?: No Do you have trouble getting transportation to medical appointments?: No Do you have trouble paying your heating and electricity bill?: No Do you have trouble taking care of your child, family member or friend?: No Do you have trouble with day-to-day activities such as bathing, preparing meals, shopping, managing finances, etc.?: No Are you currently unemployed and looking for a job?: No Are you interested in more education?: No Please select the resources that you would like help with: None Currently or been in a relationship where the following occur: No concerns reported THRIVE Score: 0 AUDIT C Alcohol Use Questionnaire (AUDIT-C) 1. How often do you have a drink containing alcohol?: Monthly or less 2. How many drinks containing alcohol do you have on a typical day when you are drinking?: 1 or 2 3. How often do you have six or more drinks on one occasion?: Never Total Score: 1 SCOTT-7 AMB Questionnaire SCOTT-7 Date SCOTT - 7 assessed: 03/12/24 Feeling nervous, anxious, or on edge: 0 = Not at all Not being able to stop or control worryin = Not at all Worrying too much about different things: 0 = Not at all Trouble relaxin = Not at all Being so restless that it is hard to sit still: 0 = Not at all Becoming easily annoyed or irritable: 0 = Not at all Feeling afraid as if something awful might happen: 0 = Not at all Total SCOTT-7 score (0-4 normal; 5-9 mild; 10-14 moderate; 15-21 severe): 0 Source: Developed by Drs. Keith Peralta, Marvin Akins and colleagues, with an educational yecenia from [facility]. Review of Systems Const Reports as per HPI Eyes Reports no additional complaints ENT Reports no additional complaints Card Reports as per HPI Resp Reports no additional complaints GI Reports as per HPI Reports as per HPI Musc Reports as per HPI Neuro Reports no additional complaints Psych Reports as per HPI Endo Reports no additional complaints Abdoulaye/Lymph Reports no additional complaints Aller/Immun Reports no additional complaints Physical exam (Primary Care) Vital Signs: Last Vital Signs Temp 97.8 F 11/13/24 12:25 Pulse 71 11/13/24 12:25 Resp 15 11/13/24 12:25 BP 110/80 11/13/24 12:25 Pulse Ox 95 11/13/24 12:25 Oxygen Delivery Method Room Air 11/13/24 12:25 BMI result Body Mass Index 31.2 Tobacco/Smoking Status: Tobacco use Status Tobacco use date assessed 03/12/24 11/13/24 12:30 Patient Tobacco Use Status Never used Tobacco 11/13/24 12:30 e-Cigarette/Vaping Use Never Used 11/13/24 12:30 PHQ-9: PHQ-9 Score PHQ-9: Total score 0 11/13/24 12:38 Depression Screening Interpretation: Negative Thrive Assessment: Date of Thrive Assessment Date Thrive assessed 03/12/24 11/13/24 12:30 Currently or been in a relationship where the following occur: No concerns reported Const General: comfortable, no acute distress and alert Nutritional Appearance: obese Orientation/consciousness: patient oriented x3 HENMT Head: Yes normocephalic General nose exam: Normal external nose present Face and sinus: Yes face symmetric Neck Neck: Yes full ROM (Gets dizzy when she tilts her head backwards), Yes no lymphadenopathy and Yes supple Resp Auscultation: clear to auscultation bilaterally Cardio Other: S1-S2 present regular rate and rhythm GI Palpation (GI): Soft to palpation, nontender, no guarding and no masses General: Yes no CVA tenderness Back/Spine/Pelvis Back: no CVA tenderness Neuro Other: Ambulatory with assistance of a cane General: patient oriented x3, moves all extremities, Normal light touch and pain sensation, no focal motor deficits and CN's II-XI intact bilaterally Extrem General: Yes full ROM, Yes no joint enlargement and Yes no clubbing, cyanosis or edema Results Reviewed Results Reviewed: Name: Fernanda Shelby Age/Sex: 74/F : 1950 Unit#: [id number] Attend Dr: Margaret Roa MD Re11/11/24 Status: DEP REF Location: [facility] Disch: SPEC : [id number] YUSEF: 11/11/24 STATUS: COMP REQ : [id number] RECD: 11/11/24-[address]: Margaret Roa MD COMP: 11/11/24 ENTERED: 11/11/[address]: ORDERED: Met Prof Fast, AST, ALT, Lipid Panel Test Result Flag Reference Sodium 142 135-145 mmol/L Potassium 4.0 3.3-5.1 mmol/L CL 108 96-108 mmol/L CO2 26 22-29 mmol/L Gap 12 12-20 BUN 21 H 9-16 mg/dL Creat 0.72 0.5-1.4 mg/dL eGFR > 60 Chronic Kidney Disease: Estimated GFR < 60 mL/min/1.73m2 Severe Kidney Disease: Estimated GFR < 15 mL/min/1.73m2 FBS 95 60-99 mg/dL CA 8.9 # 8.4-10.2 mg/dL AST (GOT) 22 5-31 U/L ALT (GPT) 16 0-31 U/L Triglyceride 147 <150 mg/dL Desirable Triglyceride: less than 150 mg/dL Borderline High Triglyceride 150-199 mg/dL High Triglyceride: 200-499 mg/dL Very High Triglyceride: greater than or equal to 5OO mg/dL Cholesterol 170 <200 mg/dL Desirable Cholesterol: less than 200 mg/dL Borderline High Cholesterol: 200-239 mg/dL High Cholesterol: greater than 239 mg/dL LDL Calculated 85 <100 mg/dL Desirable LDL: less than 100 mg/dL Near Optimal/Above Optimal LDL: 110-129 mg/dL Borderline High LDL: 130-159 mg/dL High LDL: 160-189 mg/dL Very High LDL: greater than or equal to 190 mg/dL HDL 56 >40 mg/dL Desirable HDL: greater than 40 mg/dL Note: This HDL assay may give artificially Coding Level of Care Code Est Pt Level 4 (41726) Diagnoses Dyslipidemia E78.5 Essential hypertension I10 Benign positional vertigo H81.10 Assessment & Plan Assessment & Plan (1) Dyslipidemia: Code(s): E78.5 - Hyperlipidemia, unspecified Category: Medical Plan: Reviewed recent fasting lipid profile with patient with levels within normal limits . Continue rosuvastatin 10 mg taken every other day , in addition to adherence to low-cholesterol diet and regular exercise, at least 30 minutes 3 to 4 times a week. Advised patient to make healthy food choices, eat more fruits, vegetables, whole grains, wild caught fish and low-fat dairy. Limit amount of meat and fried or fatty food products, as well as processed foods and fast foods. Follow-up scheduled with repeat fasting lipid panel in 6 months. (2) Essential hypertension: Code(s): I10 - Essential (primary) hypertension Category: Medical Plan: Blood pressure at goal of less than 130/80. Continue with losartan. Reinforced importance of following a low sodium diet, getting regular exercise, and lowering stress levels. (3) Benign positional vertigo: Code(s): H81.10 - Benign paroxysmal vertigo, unspecified ear Category: Medical Plan: Referred to physical therapy, vestibular division, to evaluate and treat for possible benign positional vertigo Orders: Orders PT Evaluation and Treatment 11/13/24 H81.10 - Benign paroxysmal vertigo, unspecified ear Basic Metabolic Panel Fasting 05/17/25 E78.5 - Hyperlipidemia, unspecified, H81.10 - Benign paroxysmal vertigo, unspecified ear, I10 - Essential (primary) hypertension Aspartate Amino Transferase 05/17/25 E78.5 - Hyperlipidemia, unspecified, H81.10 - Benign paroxysmal vertigo, unspecified ear, I10 - Essential (primary) hypertension Lipid Panel 05/17/25 E78.5 - Hyperlipidemia, unspecified, H81.10 - Benign paroxysmal vertigo, unspecified ear, I10 - Essential (primary) hypertension Alanine Aminotransferase 05/17/25 E78.5 - Hyperlipidemia, unspecified, H81.10 - Benign paroxysmal vertigo, unspecified ear, I10 - Essential (primary) hypertension Hemoglobin and Hematocrit 05/17/25 E78.5 - Hyperlipidemia, unspecified, H81.10 - Benign paroxysmal vertigo, unspecified ear, I10 - Essential (primary) hypertension Medications: Refilled losartan 50 mg PO DAILY 90 tabs 4RF
[2024-11-13 12:25] VITALS: BP 110/80; PULSE 71; RESP 15; TEMP 36.6; O2SAT 95; BMI 31.2
--- OUTSIDE RECORDS SUMMARY | 2024-11-13 12:25 | XMS_ITS | Patient Health Record ---
Author Organization [facility] Address [address] [place] [address] Care Team Providers Care Conceptor Name Role Phone Janina KRAFT, Margaret Ariza Primary Care Provider Un available Tammy Beauchamp Unavailable [phone] Allergies Allergen (clinical drug ingredient) Drug/Non Drug Allergy documented on EMR Reaction Allergy Type Onset Date Status ciprofloxacin Cipro stomach upset Drug Allergy Active meperidine Demerol upset stomache Drug Allergy A ctive Levaquin stomach upset Drug Allergy Act leidy Reason For Referral No Information Medications Medication SIG (Take, Route, Frequency, Duration) Notes Start Date End Date Status Crestor 10 MG 1 tablet Orally Once a day Active Exemestane 25 MG Orally Once a day Active Losartan Potassium-HCTZ 50-12.5 MG 1 tablet Orally Once a day Active Omeprazole 20 MG Orally Once a day Active Desonide 0.05 % Externally Act leidy traZODone HCl 50 MG Orally Once a day Active Citalopram Hydrobromide Active Social History Tobacco Use: Social History Observation Description Date Details (start date - stop date) Never Smoker NA - NA Tobacco Use/Smoking Question Answer Notes Are you a: nonsmoker Additional Findings: Tobacco Non-User Current no n-smoker Alcohol Screen Question Answer Notes Did you have a drink containing alcohol in the p ast year? Yes Points 0 Interpretation Negative Tobacco use other than smoking: Question Answer Notes Are you an other tobacco user? No Plan Of Treatment Pending Test Test Name Order Date X ray : Foot, left 3V 09/26/2017 X ray : Foot, right 3V 09/26/2017 Insurance Providers Payer Name Payer Address Payer Phone Subscriber Number Group Number Insured Name Patient Relationship to Insured Coverage Start Date Coverage End Date [facility] [address] [place] [address] [phone] [id number] Fernanda Shelby Self - patient is the insured Medical (General) History Medical History History ICD Code CAD (Cholesterol) cervical cancer Depression Fibromyalgia Measles Mumps Chicken pox Psoriasis Reflux ( GERD) Surgical History Surgery Date(Month/Year) vein ligation 2018 lumpectomy 2015
--- OUTSIDE RECORDS SUMMARY | 2024-11-13 12:25 | XMS_ITS | Patient Health Record ---
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 Problem Colon cancer screening (V76.51) Active confirmed Problem History of adenomatous polyp of colon (329489224) History of adenomatous polyp of colon (V12.72) Active confirmed Plan Of Treatment Future Test Test Name Order Date UPPER GI ENDOSCOPY 02/13/2013 COLONOSCOPY 02/13/2013 Insurance Providers Payer Name Payer Address Payer Phone Subscriber Number Group Number Insured Name Patient Relationship to Insured Coverage Start Date Coverage End Date [facility] [address] [place], [place] [id number] [phone] [id number] YONI PABLO Self - patient is the insured MEDICARE OF [place] [address] [place] [id number] YONI PABLO Self - patient is the insured Medical (General) History Medical History History ICD Code GERD with Agosto's esophagu s-EGD in 12/2008 with a small to mod-sized HH-tiny area of Agosto's esophagus-no dysplasia Tubular adenomas removed 12/2008 hyperlipidemia Denies AL,DM,CVA,Lung disease,renal dise ase interstitial cystitis Depression Takes Metformin for pre-diabetes altho ugh blood sugar was 98 Surgical History Surgery Date(Month/Year) appendectomy surgery for torticollis as a child Laser vein surgery on her legs
== END 2024-11-13 13:06 | disposition home or self-care (01) ==
LOC: HO.HMCC 11:37
PROVIDERS: PCP Internal Medicine; Visit Provider Internal Medicine
DX: E78.5 Hyperlipidemia, unspecified (principal); I10 Essential (primary) hypertension; H81.10 Benign paroxysmal vertigo, unspecified ear

== ENCOUNTER → 2024-11-13 11:36 | Outpatient (BNVA) | payer MEDICARE, SELFPAY | PROVIDERS: PCP Internal Medicine; Visit Provider Internal Medicine | DX: E78.5 Hyperlipidemia, unspecified (principal); I10 Essential (primary) hypertension; H91.10 Presbycusis, unspecified ear | CPT/HCPCS: 99212 ==